=== PATIENT | male | born 1965 | race Caucasian/White ===

== ENCOUNTER 2019-09-15 05:03 | Day surgery (SDC) | payer OTHER, BC, SELFPAY ==
[2019-09-14 10:35] VITALS: BMI 43.3
[2019-09-15] VITALS (8 sets, daily range): BP systolic 126–141; BP diastolic 72–86; PULSE 71–84; RESP 12–20; TEMP 36.7–37.2; O2SAT 94–99
[2019-09-15 09:45] LABS: Basophils Percent Auto 0.4 % (0.2-1.2); Eosinophils Absolute Auto 0.1 K/mm3 (0-0.3); Eosinophils Percent Auto 1.2 % (0-4.4); Hematocrit 44.9 % (42.0-52.0); Hemoglobin 15.1 g/dL (14.0-18.0); Immature Granulocyte Absolute 0.07 K/mm3 (0.00-0.031); Lymphocytes Absolute Auto 1.57 K/mm3 (0.9-3.2); Mean Corpuscular HGB Conc 33.6 g/dl (32-36); Mean Corpuscular Volume 86.2 fl (80-100); Mean Platelet Volume 9.1 fl (7.4-10.4); Monocytes Absolute Auto 0.5 K/mm3 (0.1-0.6); Monocytes Percent Auto 7.7 % (2.6-8.5); Neutrophils Absolute Auto 4.6 K/mm3 (1.3-6.7); Neutrophils Percent Auto 66.7 % (45.5-73.1); Platelet Count Result 238 k/mm3 (150-375); Red Blood Count 5.21 M/mm3 (4.6-6.20); Red Cell Distribution Width 13.2 % (11.5-14.5); White Blood Count 6.8 K/mm3 (4.5-10.0)
[2019-09-15 09:56] LABS: Blood Urea Nitrogen 15 mg/dL (9-20); Calcium 9.5 mg/dL (8.4-10.2); Carbon Dioxide 28 mmol/L (22-30); Chloride 100 mmol/L (98-107); Estimated CRCL calculation 168 ml/min; Estimated Glomerular Filt Rate > 60; Glucose 268 mg/dL (75-110); Potassium 4.2 mmol/L (3.4-5.0); Sodium 136 mmol/L (137-145)
--- NOTE | 2019-09-15 10:37 | WPDMODSED ---
Moderate Sedation Note-Pt Data Patient Data Allergies Allergy/AdvReac Type Severity Reaction Status Date / Time clavulanic acid Allergy Unknown RASH Unverified 05/30/19 10:22 exenatide [Byetta] Allergy Unknown abd pain Verified 05/30/19 10:22 liraglutide [Victoza] Allergy Unknown Nausea Verified 05/30/19 10:22 meperidine Allergy Unknown Skin Verified 05/30/19 10:22 Reaction metformin Allergy Unknown Nausea Verified 05/30/19 10:22 Penicillins Allergy Unknown Skin Verified 05/30/19 10:22 Reaction pollen extracts Allergy Unknown Cough Verified 05/30/19 10:22 potassium iodide Allergy Unknown Unknown Verified 05/30/19 10:22 BETALACTAMASEIN Allergy Unknown RASH Uncoded 05/30/19 10:22 Home Medications Medication Instructions Recorded Confirmed Type albuterol sulfate 90 mcg/actuation 1 inhalation INHALATION Q4H 05/27/19 09/14/19 History aerosol inhaler aspirin 81 mg tablet,delayed 81 mg PO DAILY 05/27/19 09/14/19 History release fluticasone 500 mcg-salmeterol 50 1 inhalation INHALATION Q12H 05/27/19 09/14/19 History mcg/dose blistr powdr for inhalation gabapentin 300 mg capsule 300 mg PO BID 05/27/19 09/14/19 History insulin aspart U-100 100 unit/mL 20 unit SUB-Q TID 05/27/19 09/14/19 History (3 mL) subcutaneous pen insulin glargine U-300 conc 300 80 unit SUB-Q BID ml 05/27/19 09/14/19 History unit/mL (3 mL) subcutaneous pen montelukast 10 mg tablet 10 mg PO DAILY 05/27/19 09/14/19 History testosterone cypionate 200 mg/mL 200 mg IM .COMPLEX 05/27/19 09/14/19 History intramuscular kit irbesartan 150 mg tablet 150 mg PO DAILY #90 tablet 06/10/19 09/14/19 Rx fluticasone propionate 250 1 inhalation INHALATION Q12H #1 09/08/19 09/14/19 Rx mcg/actuation blister powder for device inhalation fluticasone propion-salmeterol 1 inh INHALATION Q12H 09/14/19 09/14/19 History [Advair Diskus] Current Medications: Active Medications Sodium Chloride (Normal Saline Iv) 500 mls @ 100 mls/hr IV CONT .Q5H [facility] Sedation/Anesthesia: No previous sedation/anesthesia problems (including family history). FOR[facility] Past Medical History Medical History (Updated 09/15/19 @ 10:39 by Yahaira Olvera MD) Esophageal reflux Essential (primary) hypertension H/O pneumothorax Mixed hyperlipidemia RAMÍREZ (obstructive sleep apnea) Periorbital cellulitis Type 2 diabetes mellitus with diabetic neuropathy, unspecified Type 2 diabetes mellitus with hyperglycemia Surgical History Surgical History H/O hernia repair Family History Family History Father Diabetes mellitus Hypertension Family history of cardiovascular disease Other Acute myocardial infarction Family history of arthritis Family history of lung cancer Family history of malignant neoplasm Social History Social History Smoking status: Never smoker Alcohol intake: current Gender identity (if verbalized by the patient): Male Mod Sed Physical Exam Physical Exam Pre Procedural Exam: Normal: Appearance, Eyes, Ears, Nose, Neck, Throat, Airway, Lungs, Heart Size, Heart Rate, Heart Rhythm, Neuro Exam, Abdomen, Liver, Kidneys, Spleen, Breasts, Genitalia, Extremities and Skin Hours since solid foods: 8 Hours since liquid intake: 8 Internal Medicine - PN: Obj Da Vital Signs Vital Signs: Vital Signs - 24 hr 09/15/19 10:06 Temperature 37.2 C Pulse Rate 80 Respiratory Rate 19 Blood Pressure 138/83 Pulse Oximetry 95 Meds/Results Medications: Active Medications Generic Name Dose Route Start Last Admin Trade Name Freq PRN Reason Stop Dose Admin Sodium Chloride 500 mls @ 100 mls/hr 09/15/19 06:00 Normal Saline Iv IV CONT .Q5H JENNIFER Labs CBC & Chem 7: 09/15/19 09:41 09/15/19 09:41 Labs: Laboratory Results - last 24 hr 09/15/19
--- NOTE | 2019-09-15 10:39 | WPDHPUPDATE1 ---
History and Physical Update Update Date/Time: 09/15/19 10:39 History and Physical has been reviewed, including an updated exam of the patient. There are NO changes in the patient's condition. Risks, benefits, and alternatives have been discussed and questions answered. Patient agrees to proceed with procedure.
--- NOTE | 2019-09-15 10:39 | WPDCARDPROC ---
Cardiac Cath Procedure Note Date of procedure:: 09/15/19 Performing physician:: Yahaira Olvera MD Date of service : 09/15/2019 Indication:: exertional chest pain Brief clinical history:: this is 54-year-old patient with past history of morbid obesity, sleep apnea, diabetes hypertension who was evaluated for exertional chest pain. Given the typical history he was brought into the mobile lab technician to define coronary anatomy. Procedure Procedure performed:: 1-Moderate sedation that started at 1048 am and ended at 1104 am With total duration 60 minutes using mg of Versed and mg fentanyl. The registered nurse was Fide Ellsworth. 2-Selective left and right coronary angiogram. 3-Left heart catheterization with measurement of LVEDP and measurement of gradient across aortic valve. 3- LV angiogram. 4-Right common femoral arterial angiogram. 5-Deployment of 6 Sudanese Angio-Seal. Sedation/Medication given:: Moderate sedation. Access site:: Right common femoral artery. Estimated blood loss:: 10cc Procedure note:: After informed consent patient was brought in to mobile lab technician with the was draped and prepped in usual manner. Moderate sedation was given and the right groin was infiltrated using 1% lidocaine. Five Sudanese sheath was obtained using micropuncture needle and the modified Seldinger technique. Selective left coronary angiogram was done using JL4 catheter with the tip of the catheter placed in the left main coronary artery. Selective right coronary angiogram was done using JR4 catheter with the tip of the catheter placed to the right coronary artery. After that 5 Sudanese pigtail catheter was advanced across the aortic valve into the left ventricle with measurement of LVEDP and measurement of gradient across aortic valve. LV angiogram was done as well. Right common femoral arterial angiogram was done. Findings:: 1- left coronary artery is a large artery that divides into large LAD, large circumflex artery. Left main is Free of disease. 2- left anterior descending artery is a large artery that runs and wraps around the apex. It has minimal irregularities. Gives rise to a medium size diagonal branch proximally that looks unremarkable small diagonal 2 branch that seems to be unremarkable. 3- left circumflex artery is a large artery And codominant with minimal irregularities. In the midsegment gives us a large OM1 branch it looks unremarkable. Left PDA looks unremarkable. 4- right coronary artery is Large artery and codominant and free of disease. 5- LVEDP was 5 mm Hg and no gradient across aortic valve. 5- LV angiogram shows normal LV systolic function with estimated ejection fraction 65%. Normal ascending aorta diameter. 6- opening arterial pressure was 159/78 and closing pressure was 145/82 7- right femoral artery angiogram shows no significant disease in the right common femoral artery. Conclusion:: Minimal coronary irregularities. Assessment and Plan Additional Plan continue aggressive risk factor modification for CAD.
--- NOTE | 2019-09-15 11:40 | SUR.PHASEII ---
1113-pt has returned from the CCL after an LHC. Groin soft and non-tender, no evidence of bleeding or hematoma noted. Strong right pedal pulse noted. Will continue to monitor.
--- NOTE | 2019-09-15 13:27 | SUR.PHASEII ---
1330 pt up to chair with minimal assistance, tolerated well, r groin soft, nontender, no hematoma or bleeding noted, pedal pulse strong, at bedside. Will continue to monitor closely.
--- NOTE | 2019-09-15 15:00 | SUR.PHASEII ---
1420-pt given D/C orders and instructions. Questions answered and verbalized understanding. Groin soft and non-tender, no evidence of bleeding or hematoma noted. Strong right pedal pulse noted. PIV removed. Taken via wheelchair to waiting vehicle. No distress noted or verbalized at time of departure.
== END 2019-09-15 14:20 | disposition home or self-care (01) ==
PROVIDERS: PCP Family Medicine; Visit Provider Internal Medicine Cardiovascular Disease
PROC: 4A023N7 Measurement of Cardiac Sampling and Pressure, Left Heart, Percutaneous Approach (ICD-10-PCS; CPT 93452; principal; 2019-09-15 10:00)
DX: R07.89 Other chest pain (principal); I10 Essential (primary) hypertension; E78.2 Mixed hyperlipidemia; E11.40 Type 2 diabetes mellitus with diabetic neuropathy, unspecified; E11.65 Type 2 diabetes mellitus with hyperglycemia; G47.33 Obstructive sleep apnea (adult) (pediatric); J45.909 Unspecified asthma, uncomplicated; K21.9 Gastro-esophageal reflux disease without esophagitis; Z79.84 Long term (current) use of oral hypoglycemic drugs; Z79.4 Long term (current) use of insulin; Z79.82 Long term (current) use of aspirin; Z82.49 Family history of ischemic heart disease and other diseases of the circulatory system
CPT/HCPCS: 36415; 80048; 85025; 93458; C1760; C1887; C1894; G0269; J1644; J2250; J3010

== ENCOUNTER 2021-01-09 07:33 | Outpatient (CLI) | payer OTHER, SELFPAY ==
[2021-01-09 08:09] LABS: Hematocrit 47.7 % (42.0-52.0); Hemoglobin 15.7 g/dL (14.0-18.0)
[2021-01-09 08:30] LABS: Alanine Aminotransferase 30 U/L (4-50); Albumin Level 4.5 g/dL (3.5-5.1); Alkaline Phosphatase 86 U/L (38-126); Anion Gap 9 mmol/L (8-16); Aspartate Amino Transferase 29 U/L (17-59); Bilirubin,Total 0.6 mg/dL (0.2-1.3); Blood Urea Nitrogen 17 mg/dL (9-20); Calcium 9.4 mg/dL (8.4-10.2); Carbon Dioxide 26 mmol/L (22-30); Chloride 100 mmol/L (98-107); Cholesterol 174 mg/dL (0-200); Estimated Glomerular Filt Rate > 60; Glucose 288 mg/dL (75-110); HDL Direct 33 mg/dL; Potassium 4.4 mmol/L (3.4-5.0); Sodium 135 mmol/L (137-145)
[2021-01-09 08:31] LABS: LDL Cholesterol Direct 63 mg/dL
[2021-01-09 10:46] LABS: Hemoglobin A1C 8.7 % (<5.7)
[2021-01-09 12:44] LABS: Triglycerides 564 mg/dL (<150)
[2021-01-13 09:11] LABS: Testosterone Total 107 ng/dL (250-1100)
[2021-01-16 19:57] LABS: Estradiol, Ultrasensitive 14 pg/mL (< OR = 29)
== END 2021-01-09 07:34 | disposition home or self-care (01) ==
PROVIDERS: PCP Family Medicine; Referring Provider Urology; Visit Provider Physician Assistant
DX: E11.40 Type 2 diabetes mellitus with diabetic neuropathy, unspecified (principal); E29.1 Testicular hypofunction; Z79.4 Long term (current) use of insulin; E78.2 Mixed hyperlipidemia
CPT/HCPCS: 36415; 80053; 80061; 82670; 83036; 84403; 85014; 85018

== ENCOUNTER → 2021-04-09 14:15 | Outpatient (CLI) | payer OTHER, SELFPAY ==
--- NOTE | ~2021-04-09 | XR_ITS ---
EXAMINATION: XR chest 2V DATE: 04/09/2021 15:09 INDICATION: Shortness of breath, unspecified TECHNIQUE: PA and lateral views of the chest are obtained. COMPARISON: 10/24/2020, 10/12/2018 FINDINGS: A suture anchor is noted in the left lung apex. There is chronic blunting of the left costo phrenic angle. There is no pleural effusion or pneumothorax. The cardiomediastinal silhouette is norm al. There is mild thoracic spondylosis. IMPRESSION: 1. No acute cardiopulmonary abnormality. Reviewed, dictated and finalized at location A.
== END ==
PROVIDERS: PCP Family Medicine; Visit Provider Family Medicine
DX: R06.00 Dyspnea, unspecified (principal)
CPT/HCPCS: 71046

== ENCOUNTER 2021-05-10 07:34 | Outpatient (CLI) | payer OTHER, SELFPAY ==
--- NOTE | 2021-05-10 07:58 | ECHO_ITS ---
Patient Info Name: Marcos Hunter Age: 55 years : 1965 Gender: Male Ht: 71 in Wt: 310 lbs BSA: 2.72 m2 HR: 74 bpm BP: 162 / 86 mmHg Technical Quality: Fair Exam Date: 05/10/2021 8:11 AM Exam Location: [facility] Patient Status: Outpatient Admit Date: 05/10/2021 Staff Ordering Physician: Misty Ralph MD Monogram Machine Operator: Laine Watson RDCS Attending Provider: Misty Ralph MD Referring Physician: Ramo RANDALL; Exam Type: CA echo doppler color flow Study Info Indications R06.02 - Shortness of breath Complete two-dimensional, color flow and Doppler transthoracic echocardiogram is performed. Summary 1. Complete two-dimensional, color flow and Doppler transthoracic echocardiogram is performed. 2. Left ventricular chamber dimension is normal. 3. Left ventricular systolic function is normal, estimated at 65-70%. 4. The left ventricular diastolic function is grade II diastolic dysfunction. 5. E/e' 11 is mildly elevated. 6. Global longitudinal strain is abnormal at -14.5%. 7. No pulmonary hypertension, estimated pulmonary arterial systolic pressure is 28 mmHg. Left Ventricle E/e' 11 is mildly elevated. Global longitudinal strain is abnormal at -14.5%. Left ventricular chamber dimension is normal. Left ventricular systolic function is normal, estimated at 65-70%. The left ventricular diastolic function is grade II diastolic dysfunction. Right Ventricle Right ventricular systolic function is normal and with normal TAPSE 2.2 cm.. Right ventricular chamber dimension is normal. Left Atria Left atrial chamber dimension is normal. Right Atria Right atrial chamber dimension is normal. Aortic Valve The aortic valve is probable trileaflet. There is no aortic valve stenosis. There is no aortic valve regurgitation. Pulmonic Valve There is no pulmonic regurgitation. Mitral Valve There is no mitral valve stenosis. There is no mitral valve regurgitation. Tricuspid Valve There is no tricuspid valve regurgitation. No pulmonary hypertension, estimated pulmonary arterial systolic pressure is 28 mmHg. Pericardium/Pleural There is no pericardial effusion. Inferior Vena Cava Normal inferior vena cava with >50% collapse upon inspiration consistent with normal right atrial pressure, 5 mmHg. Aorta The aortic root size at the sinus of Valsalva is normal. Left Ventricular Outflow Tract Name Value Normal LVOT 2D LVOT Diameter 2.0 cm LVOT Doppler LVOT Peak Gradient 7 mmHg LVOT Mean Gradient 4 mmHg LVOT VTI 27 cm LVOT VTI/AV VTI Ratio 1.0 LVOT Stroke Volume 84 ml LVOT CO 6.5 l/min LVOT CI 2.4 l/min/m2 Pulmonic Valve Name Value Normal RVOT Doppler
--- NOTE | 2021-05-10 13:16 | WPDPFTINT ---
PFT Procedure Performed PFT Procedure Performed Spirometry with Pre/Post Bronchodilator Plethysmography (Lung Vol) Diffusing Cap (DLCO) Flow Vol Loop PFT Interpretation This is a pulmonary function test with pre and post-bronchodilator spirometry, plethysmography and diffusing capacity. The test was performed and results interpreted in accordance with the 2019 and 2005 ATS/ERS Task Force guidelines respectively using the Global Lung Function Initiative-2012 reference equations. Patient demonstrated good effort and cooperation. Reproducibility criteria were met. The quality of the pre bronchodilator spirometry maneuver was Grade A and post bronchodilator spirometry maneuver was Grade A. Findings: Spirometry: There is decreased maximal expiratory airflow at all lung volumes with concave expiratory flow tracing. The contour of the inspiratory flow tracing is normal. The pre bronchodilator FVC is 4.04 L, 82% predicted. The pre bronchodilator FEV1 is 2.55 L, 67% predicted. The FEV1: FVC ratio 63%. The post bronchodilator FVC is 3.85 L, representing a 5% decrease. The post bronchodilator FEV1 is 2.53 L, representing 1% decrease. Plethysmography: The total lung capacity is 5.75 L, 80% predicted. The functional residual capacity is 3.24 L, 87% predicted. The residual volume is 1.71 L, 77% predicted. Diffusion capacity: The absolute diffusion capacity is 27.3, 93% predicted. The diffusing capacity corrected for alveolar volume is 5.51, 129% predicted. Impression: There is a moderate obstructive abnormality without significant improvement after inhaling a single dose of albuterol. The lung volumes are normal. the absolute diffusing capacity is normal and the diffusing capacity corrected for alveolar volume is increased. There are no prior studies for comparison
== END 2021-05-10 07:35 | disposition home or self-care (01) ==
PROVIDERS: PCP Family Medicine; Visit Provider Internal Medicine Critical Care Medicine
DX: J45.50 Severe persistent asthma, uncomplicated (principal); R06.02 Shortness of breath; R94.2 Abnormal results of pulmonary function studies
CPT/HCPCS: 93306; 94060; 94726; 94729

== ENCOUNTER 2021-05-21 07:34 | Outpatient (CLI) | payer OTHER, SELFPAY ==
[2021-05-21 08:05] LABS: Basophils Absolute Auto 0.1 K/mm3 (0.0-0.1); Basophils Percent Auto 0.7 % (0.2-1.2); Eosinophils Absolute Auto 0.1 K/mm3 (0-0.3); Eosinophils Percent Auto 1.2 % (0-4.4); Hematocrit 42.5 % (42.0-52.0); Hemoglobin 14.2 g/dL (14.0-18.0); Immature Granulocyte Absolute 0.07 K/mm3 (0.00-0.031); Lymphocytes Absolute Auto 1.18 K/mm3 (0.9-3.2); Lymphocytes Percent Auto 16.3 % (18.3-44.2); Mean Corpuscular HGB Conc 33.4 g/dl (32-36); Mean Corpuscular Hemoglobin 30.3 pg (26-34); Mean Corpuscular Volume 90.6 fl (80-100); Mean Platelet Volume 9.5 fl (7.4-10.4); Monocytes Absolute Auto 0.5 K/mm3 (0.1-0.6); Neutrophils Absolute Auto 5.3 K/mm3 (1.3-6.7); Neutrophils Percent Auto 73.8 % (45.5-73.1); Platelet Count Result 201 k/mm3 (150-375); Red Blood Count 4.69 M/mm3 (4.6-6.20); Red Cell Distribution Width 13.2 % (11.5-14.5); White Blood Count 7.2 K/mm3 (4.5-10.0)
[2021-05-24 11:06] LABS: Alpha-1-Antitrypsin, QN 127 mg/dL (83-199)
[2021-05-26 02:24] LABS: Immunoglobulin E 168 kU/L (<=114)
== END 2021-05-21 07:35 | disposition home or self-care (01) ==
LOC: ANHLAB 07:37
PROVIDERS: PCP Family Medicine; Visit Provider Internal Medicine Critical Care Medicine
DX: J45.50 Severe persistent asthma, uncomplicated (principal); R06.02 Shortness of breath
CPT/HCPCS: 36415; 82103; 82104; 82785; 85025; 86606

== ENCOUNTER → 2021-06-11 12:32 | Outpatient (CLI) | payer OTHER, SELFPAY ==
--- NOTE | ~2021-06-11 | XR_ITS ---
EXAMINATION: XR lumbar spine 2-3V DATE: 06/11/2021 13:02 INDICATION: Low back pain. TECHNIQUE: 3 views of lumbar spine were obtained. COMPARISON: None. FINDINGS: There is 5 degrees dextrocurvature of thoracolumbar spine. Vertebral body heights and inter vertebral disc heights are normal. There are endplate osteophytes at multiple levels. There is severe facet joint osteoarthritis in lower lumbar spine. There are surgical clips from ventral hernia repmaria guadalupe rStephan IMPRESSION: 1. Mild lumbar spondylosis. Reviewed, dictated and finalized at location A. MING PRESS OPERATOR IMPRESSION: 1. Mild lumbar spondylosis.
--- NOTE | ~2021-06-11 | XR_ITS ---
EXAMINATION: XR hip BI 2V w AP pelvis DATE: 06/11/2021 13:02 INDICATION: Hip pain. Low back pain. TECHNIQUE: An anteroposterior view of the pelvis and 2 views of each hip were obtained. COMPARISON: Left hip radiographs 05/25/2017 FINDINGS: Bone alignment is normal. No fracture. There is mild osteoarthritis of the hips characteriz ed by tiny osteophytes. There are surgical clips from ventral hernia repair. IMPRESSION: 1. Mild osteoarthritis of the hips. Reviewed, dictated and finalized at location A. BRATION SPECIALIST
== END ==
PROVIDERS: PCP Family Medicine; Visit Provider Physician Assistant
DX: M54.50 Low back pain, unspecified (principal); M25.559 Pain in unspecified hip; M47.816 Spondylosis without myelopathy or radiculopathy, lumbar region; M16.0 Bilateral primary osteoarthritis of hip
CPT/HCPCS: 72100; 73521

== ENCOUNTER 2021-08-27 07:15 | Outpatient (CLI) | payer OTHER, SELFPAY ==
[2021-08-27 08:24] LABS: Alanine Aminotransferase 35 U/L (4-50); Albumin Level 4.3 g/dL (3.5-5.1); Alkaline Phosphatase 86 U/L (38-126); Anion Gap 10 mmol/L (8-16); Aspartate Amino Transferase 30 U/L (17-59); Bilirubin,Total 0.8 mg/dL (0.2-1.3); Blood Urea Nitrogen 14 mg/dL (9-20); Calcium 8.5 mg/dL (8.4-10.2); Carbon Dioxide 22 mmol/L (22-30); Chloride 103 mmol/L (98-107); Cholesterol 159 mg/dL (0-200); Estimated Glomerular Filt Rate > 60; Glucose 213 mg/dL (65-110); HDL Direct 31 mg/dL; Potassium 4.3 mmol/L (3.4-5.0); Sodium 135 mmol/L (137-145); Triglycerides 266 mg/dL (<150)
[2021-08-27 08:35] LABS: LDL Cholesterol Direct 87 mg/dL
[2021-08-27 09:23] LABS: Vitamin B12 > 1000.0 pg/mL (239-931)
[2021-08-27 11:13] LABS: Creatinine Urine 41.5 mg/dL
[2021-08-27 11:17] LABS: MALB Creatinine Ratio 130.8 mg/g (0-30); Microalbumin Urine Random 54.3 mg/L (0-16.7)
== END 2021-08-27 07:16 | disposition home or self-care (01) ==
PROVIDERS: PCP Family Medicine; Referring Provider Internal Medicine Endocrinology, Diabetes & Metabolism; Visit Provider Physician Assistant
DX: E11.65 Type 2 diabetes mellitus with hyperglycemia (principal); E78.2 Mixed hyperlipidemia; Z79.4 Long term (current) use of insulin; E11.40 Type 2 diabetes mellitus with diabetic neuropathy, unspecified
CPT/HCPCS: 36415; 80053; 80061; 82043; 82607; 84443

== ENCOUNTER → 2021-08-28 08:47 | Outpatient (CLI) | payer OTHER, SELFPAY ==
[2021-08-28 16:45] LABS: SARS-CoV-2 RNA PCR Negative
== END ==
PROVIDERS: PCP Family Medicine; Visit Provider Family Medicine
DX: Z20.822 Contact with and (suspected) exposure to COVID-19 (principal)
CPT/HCPCS: C9803; U0003; U0005

== ENCOUNTER 2021-08-29 10:26 | Outpatient (CLI) | payer OTHER, SELFPAY ==
--- NOTE | ~2021-08-29 | CT_ITS ---
EXAMINATION: CT abdomen pelvis w con INDICATION: Abdominal pain TECHNIQUE: Computed tomographic images of the abdomen and pelvis were obtained after the administrati on of 100 cc of Omnipaque 350 intravenous contrast. The dose-length product (DLP) was 1598.87 mGy-cm. Automated exposure control and iterative reconstruction technique were employed. COMPARISON: None available FINDINGS: Minimal dependent atelectasis is present in the lung bases. The heart size is normal. There is a 6 mm nodule of the left lower lobe. The liver, spleen, pancreas, gallbladder, and adrenal gland s are normal. Cysts of the kidneys measure up to 9 mm on the right. There are mildly dilated loops of small bowel. No discrete transition point is identified. There is no free intraperitoneal gas. Mccracken es of mesh ventral hernia repair are noted. There is mild lumbar spondylosis. IMPRESSION: 1. Mildly dilated small bowel without discrete transition point identified, likely ileus. 2. 6 mm nodule of the left lower lobe, likely old granulomatous disease. Follow-up CT in 6-12 months is recommended. Reviewed, dictated and finalized at location A. ONNEL ADMINISTRATOR IMPRESSION: 1. Mildly dilated small bowel without discrete transition point identified, lik mao ileus. 2. 6 mm nodule of the left lower lobe, likely old granulomatous disease. Follow -up CT in 6-12 months is recommended.
== END 2021-08-29 10:27 | disposition home or self-care (01) ==
LOC: ANHIMG 10:27
PROVIDERS: PCP Family Medicine; Visit Provider Physician Assistant
DX: R10.9 Unspecified abdominal pain (principal); R91.1 Solitary pulmonary nodule
CPT/HCPCS: 74177; Q9967

== ENCOUNTER → 2021-09-02 12:23 | Outpatient (CLI) | payer OTHER, SELFPAY ==
--- NOTE | ~2021-09-02 | XR_ITS ---
EXAMINATION: XR abdomen obstructive series DATE: 09/02/2021 12:58 INDICATION: Abdominal pain TECHNIQUE: Supine and upright views of the abdomen. FINDINGS: 07/31/2011 The visualized lung parenchyma is normal.. There is a nonobstructive bowel gas pattern. There is a la rge amount of retained fecal material throughout the colon. There are changes of ventral abdominal wa ll hernia repair. No acute osseous abnormality. Gas and stool are seen throughout the colon to the le sanju of the rectum. There is no free air. IMPRESSION: 1. Fecal impaction of the colon. Reviewed, dictated and finalized at location B. WICH WRAPPER
== END ==
PROVIDERS: PCP Family Medicine; Visit Provider Family Medicine
DX: R10.9 Unspecified abdominal pain (principal); K56.41 Fecal impaction
CPT/HCPCS: 74019

== ENCOUNTER → 2021-10-03 15:01 | Outpatient (CLI) | payer OTHER, SELFPAY ==
--- NOTE | ~2021-10-03 | XR_ITS ---
EXAMINATION: XR chest 2V DATE: 10/03/2021 15:44 INDICATION: Cough TECHNIQUE: AP and lateral views of the chest are obtained. COMPARISON: 04/09/2021 FINDINGS: A suture line is noted in the left lung apex. There is unchanged chronic blunting of the le ft costophrenic angle. The lungs are free of acute opacities. There is no pleural effusion or pneumot horax. The cardiomediastinal silhouette is normal. There is mild thoracic spondylosis. IMPRESSION: 1. No acute cardiopulmonary abnormality. Reviewed, dictated and finalized at location B.
== END ==
PROVIDERS: PCP Family Medicine; Visit Provider Internal Medicine Critical Care Medicine
DX: R68.89 Other general symptoms and signs (principal)
CPT/HCPCS: 71046

== ENCOUNTER → 2021-11-21 12:34 | Outpatient (CLI) | payer OTHER, SELFPAY ==
--- NOTE | ~2021-11-21 | XR_ITS ---
XR hip LT min 2V DATE: 11/21/2021 13:13 INDICATION: Left hip pain TECHNIQUE: AP and lateral views COMPARISON: 06/11/2021 pelvis and bilateral hips FINDINGS: No fracture or dislocation, avascular necrosis or bone destruction. Left hip joint space ap pears preserved. IMPRESSION: Negative Reviewed, dictated and finalized at location B. IMPRESSION: Negative
--- NOTE | ~2021-11-21 | XR_ITS ---
XR lumbar spine 2-3V DATE: 11/21/2021 13:13 INDICATION: Low back pain TECHNIQUE: AP, lateral, coned lateral lumbosacral views COMPARISON: 06/11/2021 lumbar spine FINDINGS: Mild dextroscoliosis of the thoracolumbar spine. Normal alignment lumbar spine. No fracture or bone destruction or spondylolisthesis. There is mild degenerative disease and spurring at L3-4. Remaining lumbar and lumbosacral interspaces are well preserved. The lumbar pedicles are intact. The sacroiliac joints are intact. Surgical clips from ventral lower abdominal wall hernia repair. IMPRESSION: No significant change since 06/11/2021 Reviewed, dictated and finalized at location B.
== END ==
PROVIDERS: PCP Family Medicine; Visit Provider Physician Assistant
DX: M47.816 Spondylosis without myelopathy or radiculopathy, lumbar region (principal); M41.9 Scoliosis, unspecified
CPT/HCPCS: 72100; 73502

== ENCOUNTER 2022-03-27 14:38 | Outpatient (CLI) | payer OTHER, SELFPAY ==
--- NOTE | ~2022-03-27 | CT_ITS ---
EXAMINATION:CT diagnostic chest wo con DATE: 03/27/2022 15:20 INDICATION: Solitary pulmonary nodule. TECHNIQUE: Computed tomography (CT) of the chest was performed without intravenous contrast. Automate d exposure control and iterative reconstruction technique were employed. The dose-length product (DLP ) was 447.99 mGy-cm. COMPARISON: CT abdomen and pelvis 08/29/2021 FINDINGS: There is mild scarring at the lung apices. There is a staple line in the left lung apex. Th ere is mild atelectasis in the inferior right lung and peripheral left lung. There is a 7 mm part radha id nodule in left upper lobe. There is a 4 mm nodule in left upper lobe. Foci of hyperdensity in the pleura on the left may be changes of pleurodesis. There is a 15 mm groundglass opacity in right lower lobe. No pleural effusion. The heart size is normal. There are coronary artery calcifications. No pe ricardial effusion. There is mild chronic anterior wedging of T6 vertebral body. There is mild thorac ic spondylosis. IMPRESSION: 1. Lung-RADS category 3: Probably benign. Further evaluation is recommended with noncontrast low-dose chest CT in 6 months. Reviewed, dictated and finalized at location A. IMPRESSION: 1. Lung-RADS category 3: Probably benign. Further evaluation is recommended wit h noncontrast low-dose chest CT in 6 months.
== END 2022-03-27 14:39 | disposition home or self-care (01) ==
PROVIDERS: PCP Internal Medicine Critical Care Medicine; Visit Provider Internal Medicine Critical Care Medicine
DX: R91.1 Solitary pulmonary nodule (principal); M47.814 Spondylosis without myelopathy or radiculopathy, thoracic region; M48.54XA Collapsed vertebra, not elsewhere classified, thoracic region, initial encounter for fracture
CPT/HCPCS: 71250

== ENCOUNTER 2022-07-10 07:46 | Outpatient (CLI) | payer OTHER, SELFPAY | END 2022-07-10 07:47 | disposition home or self-care (01) | LOC: ANHAUDASC 07:47 | PROVIDERS: PCP Family Medicine; Visit Provider Family Medicine | DX: R41.89 Other symptoms and signs involving cognitive functions and awareness (principal); H90.3 Sensorineural hearing loss, bilateral | CPT/HCPCS: 92557; 92567 ==

== ENCOUNTER 2022-07-23 08:14 | Outpatient (CLI) | payer OTHER, SELFPAY ==
--- NOTE | ~2022-07-23 | MR_ITS ---
EXAMINATION: MR brain/brain stem wo/w con DATE: 07/23/2022 09:09 INDICATION: Cognitive impairment. Memory loss. TECHNIQUE: Magnetic resonance imaging (MRI) of the brain and brainstem was performed without and with 20 mL MultiHance intravenous contrast. COMPARISON: None. FINDINGS: There is no intracranial hemorrhage, acute infarction, or abnormal intracranial mass lesion . The ventricles are normal in size. The mastoid air cells are normal. There is mild mucosal thickeni ng in the paranasal sinuses. The orbits are normal. IMPRESSION: 1. Normal brain. Reviewed, dictated and finalized at location A. ISTRY QUALITY CONTROL TECHNICIAN IMPRESSION: 1. Normal brain.
== END 2022-07-23 08:15 | disposition home or self-care (01) ==
LOC: ANHIMG 08:15
PROVIDERS: PCP Family Medicine; Visit Provider Family Medicine
DX: R41.89 Other symptoms and signs involving cognitive functions and awareness (principal); E11.40 Type 2 diabetes mellitus with diabetic neuropathy, unspecified; Z79.4 Long term (current) use of insulin
CPT/HCPCS: 70553; A9577

== ENCOUNTER 2022-09-18 15:00 | Outpatient (RCR) | payer OTHER, SELFPAY | END 2022-11-04 23:59 | disposition home or self-care (01) | LOC: ANHAUDASC 15:00 | PROVIDERS: PCP Family Medicine; Visit Provider Family Medicine | DX: Z46.1 Encounter for fitting and adjustment of hearing aid (principal) | CPT/HCPCS: 99199; V5261 ==

== ENCOUNTER 2022-09-20 07:48 | Outpatient (CLI) | payer OTHER, SELFPAY ==
[2022-09-20 08:27] LABS: Cholesterol 172 mg/dL (0-200); HDL Direct 33 mg/dL; Triglycerides 268 mg/dL (<150)
[2022-09-20 08:29] LABS: Alanine Aminotransferase 27 U/L (6-50); Albumin Level 4.2 g/dL (3.5-5.1); Alkaline Phosphatase 81 U/L (38-126); Anion Gap 4 mmol/L (8-16); Aspartate Amino Transferase 24 U/L (17-59); Bilirubin,Total 0.5 mg/dL (0.2-1.3); Blood Urea Nitrogen 18 mg/dL (9-20); Carbon Dioxide 31 mmol/L (22-30); Chloride 102 mmol/L (98-107); Estimated Glomerular Filt Rate > 60; Glucose 193 mg/dL (65-110); Sodium 137 mmol/L (137-145)
[2022-09-20 08:37] LABS: LDL Cholesterol Direct 99 mg/dL
[2022-09-20 12:42] LABS: Microalbumin Urine Random 21.1 mg/L (0-16.7)
[2022-09-20 13:40] LABS: Creatinine Urine 72.6 mg/dL; MALB Creatinine Ratio 29.1 mg/g (0-30)
== END 2022-09-20 07:49 | disposition home or self-care (01) ==
PROVIDERS: PCP Family Medicine; Visit Provider Internal Medicine Endocrinology, Diabetes & Metabolism
DX: R41.89 Other symptoms and signs involving cognitive functions and awareness (principal); E11.29 Type 2 diabetes mellitus with other diabetic kidney complication; E11.65 Type 2 diabetes mellitus with hyperglycemia; E78.5 Hyperlipidemia, unspecified; R80.9 Proteinuria, unspecified; Z71.3 Dietary counseling and surveillance; Z79.4 Long term (current) use of insulin
CPT/HCPCS: 36415; 80053; 80061; 82043; 82607; 84443

== ENCOUNTER 2022-09-24 13:37 | Outpatient (CLI) | payer OTHER, SELFPAY ==
--- NOTE | ~2022-09-24 | CT_ITS ---
CT Scan of the Chest without Contrast: Clinical Indication: Pulmonary nodules Technique: Contiguous sections were acquired throughout the chest without intravenous contrast. Dose reduction technique was used on this scan by utilizing automated exposure control and iterative recon struction technique. The dose-length product (DLP) was 434.34 mGy-cm. COMPARISON: 03/27/2022 Findings: There is no evidence of any significant mediastinal, hilar or axillary lymphadenopathy. Coronary piero ry calcifications are present. No aortic aneurysm. There is no evidence of pleural or pericardial effusion. 3 mm nodule in the right middle lobe (axial image 69). Stable scarring at the left lung apex and left lung base. Stable nodule at the left lung base (axial image 100. Stable nodularity along the left yu ng fissure. Stable suture line versus calcified plaque at the left lung apex. Previously noted right lower lobe groundglass opacity is resolved. Images through the upper abdomen reveal no abnormalities. Impression: Stable subcentimeter pulmonary nodules, as noted above. Consider continued follow-up to document two- year stability. Previously noted right lower lobe groundglass opacity is resolved. Stable staple line at the left lung apex. Reviewed, dictated and finalized at location . Impression: Stable subcentimeter pulmonary nodules, as noted above. Consider continued foll ow-up to document two-year stability. Previously noted right lower lobe groundglass opacity is resolved. Stable staple line at the left lung apex.
== END 2022-09-24 13:38 | disposition home or self-care (01) ==
PROVIDERS: PCP Family Medicine; Visit Provider Internal Medicine Critical Care Medicine
DX: R91.8 Other nonspecific abnormal finding of lung field (principal)
CPT/HCPCS: 71250

== ENCOUNTER 2023-02-10 14:25 | Outpatient (CLI) | payer OTHER, SELFPAY ==
[2023-02-10 14:50] LABS: Basophils Absolute Auto 0.1 K/mm3 (0.0-0.1); Basophils Percent Auto 0.6 % (0.2-1.2); Eosinophils Absolute Auto 0.1 K/mm3 (0-0.3); Eosinophils Percent Auto 1.2 % (0-4.4); Hematocrit 46.2 % (42.0-52.0); Hemoglobin 15.3 g/dL (14.0-18.0); Immature Granulocyte Absolute 0.05 K/mm3 (0.00-0.031); Immature Granulocyte Percent A 0.6 % (0-0.5); Lymphocytes Absolute Auto 1.73 K/mm3 (0.9-3.2); Lymphocytes Percent Auto 22.2 % (18.3-44.2); Mean Corpuscular HGB Conc 33.1 g/dl (32-36); Mean Corpuscular Hemoglobin 30.1 pg (26-34); Mean Corpuscular Volume 90.8 fl (80-100); Monocytes Absolute Auto 0.7 K/mm3 (0.1-0.6); Monocytes Percent Auto 9.1 % (2.6-8.5); Neutrophils Absolute Auto 5.2 K/mm3 (1.3-6.7); Neutrophils Percent Auto 66.3 % (45.5-73.1); Platelet Count Result 210 k/mm3 (150-375); Red Blood Count 5.09 M/mm3 (4.6-6.20); Red Cell Distribution Width 13.1 % (11.5-14.5); White Blood Count 7.8 K/mm3 (4.5-10.0)
[2023-02-10 15:22] LABS: Immunoglobulin G 1023 mg/dL (700-1600)
== END 2023-02-10 14:26 | disposition home or self-care (01) ==
PROVIDERS: PCP Family Medicine
DX: J34.3 Hypertrophy of nasal turbinates (principal)
CPT/HCPCS: 36415; 82784; 85025

== ENCOUNTER 2023-03-19 12:09 | Outpatient (CLI) | payer OTHER, SELFPAY ==
--- NOTE | ~2023-03-19 | CT_ITS ---
EXAMINATION: CT diagnostic chest wo con DATE: 03/19/2023 12:27 INDICATION: Pulmonary nodules TECHNIQUE: Computed tomography (CT) of the chest was performed without intravenous contrast. The dose -length product (DLP) was 323.29 mGy-cm. Automated exposure control and iterative reconstruction tech nique were employed. COMPARISON: 09/24/2022 FINDINGS: There is a staple line in the left lung apex. There is a stable 7 mm part solid nodule of t he left upper lobe. The lungs are free of acute opacities. No pleural effusion or pneumothorax. The h eart size is normal. There is mild right axillary lymphadenopathy. There is mild thoracic spondylosis . IMPRESSION: 1. Stable left upper lobe nodule, probably benign. Annual lung cancer screening is recommended. 2. Right axillary lymphadenopathy of unclear significance or etiology. Clinical follow-up is recommen ded. Reviewed, dictated and finalized at location L. IMPRESSION: 1. Stable left upper lobe nodule, probably benign. Annual lung cancer screening is recommended. 2. Right axillary lymphadenopathy of unclear significance or etiology. Clinical follow-up is recommended.
== END 2023-03-19 12:10 | disposition home or self-care (01) ==
LOC: ANHIMG 12:11
PROVIDERS: PCP Family Medicine; Visit Provider Internal Medicine Critical Care Medicine
DX: R91.1 Solitary pulmonary nodule (principal)
CPT/HCPCS: 71250

== ENCOUNTER 2023-05-27 16:08 | Outpatient (CLI) | payer OTHER, SELFPAY ==
[2023-05-27 17:52] LABS: Hemoglobin 15.2 g/dL (14.0-18.0)
[2023-05-27 18:42] LABS: Prostate Specific Antigen 0.6 ng/mL (< OR = 4.0)
[2023-06-01 12:15] LABS: Testosterone Total 727 ng/dL (250-1100)
[2023-06-03 23:12] LABS: Estradiol, Ultrasensitive 40 pg/mL (< OR = 29)
== END 2023-05-27 16:09 | disposition home or self-care (01) ==
LOC: ANHLAB 16:09
PROVIDERS: PCP Family Medicine; Visit Provider Urology
DX: Z12.5 Encounter for screening for malignant neoplasm of prostate (principal); E29.1 Testicular hypofunction
CPT/HCPCS: 36415; 82670; 84153; 84403; 85014; 85018; G0103

== ENCOUNTER 2023-09-01 07:33 | Outpatient (CLI) | payer OTHER, SELFPAY ==
--- NOTE | ~2023-09-01 | XR_ITS ---
EXAMINATION: XR chest 2V DATE: 09/01/2023 07:48 INDICATION: Cough TECHNIQUE: PA and lateral views of the chest are obtained. COMPARISON: 10/03/2021 FINDINGS: The lungs are free of acute opacities. Surgical ash are noted at the left lung apex. Th ere is volume loss in the left hemithorax with peripheral scarring at the left costophrenic angle. No pleural effusion or pneumothorax. The cardiomediastinal silhouette is normal. There is mild thoracic spondylosis. IMPRESSION: 1. No acute cardiopulmonary abnormality. Reviewed, dictated and finalized at location L. STACKER
== END 2023-09-01 07:34 | disposition home or self-care (01) ==
LOC: ANHIMG 07:35
PROVIDERS: PCP Family Medicine; Visit Provider Internal Medicine Critical Care Medicine
DX: U07.1 COVID-19 (principal); R06.02 Shortness of breath; R05.9 Cough, unspecified
CPT/HCPCS: 71046

== ENCOUNTER 2023-09-02 12:01 | Outpatient (CLI) | payer OTHER, SELFPAY ==
--- NOTE | 2023-09-02 07:56 | ECG_ITS ---
Measurements Intervals [place]son Rate: 81 P: 60 CO: 140 QRS: 46 QRSD: 100 T: 52 QT: 349 QTc: 405 Interpretive Statements SINUS RHYTHM WITH SINUS ARRHYTHMIA BORDERLINE ECG NO PREVIOUS ECG AVAILABLE FOR COMPARISON Electronically Signed On 09-02-2023 16:24:26 ADVERTISING SOLICITOR by Judah Chavis M.D.
[2023-09-02 12:39] LABS: Basophils Absolute Auto 0.1 K/mm3 (0.0-0.1); Basophils Percent Auto 0.7 % (0.2-1.2); Eosinophils Percent Auto 0.1 % (0-4.4); Hematocrit 46.2 % (42.0-52.0); Hemoglobin 14.8 g/dL (14.0-18.0); Immature Granulocyte Absolute 0.31 K/mm3 (0.00-0.031); Immature Granulocyte Percent A 3.6 % (0-0.5); Lymphocytes Absolute Auto 0.88 K/mm3 (0.9-3.2); Lymphocytes Percent Auto 10.2 % (18.3-44.2); Mean Corpuscular Hemoglobin 29.3 pg (26-34); Mean Corpuscular Volume 91.5 fl (80-100); Mean Platelet Volume 9.5 fl (7.4-10.4); Monocytes Absolute Auto 0.5 K/mm3 (0.1-0.6); Monocytes Percent Auto 5.8 % (2.6-8.5); Neutrophils Absolute Auto 6.8 K/mm3 (1.3-6.7); Neutrophils Percent Auto 79.6 % (45.5-73.1); Platelet Count Result 202 k/mm3 (150-375); Red Blood Count 5.05 M/mm3 (4.6-6.20); Red Cell Distribution Width 13.3 % (11.5-14.5); White Blood Count 8.6 K/mm3 (4.5-10.0)
[2023-09-02 12:51] LABS: Alanine Aminotransferase 31 U/L (6-50); Albumin Level 4.3 g/dL (3.5-5.1); Alkaline Phosphatase 66 U/L (38-126); Anion Gap 7 mmol/L (8-16); Aspartate Amino Transferase 27 U/L (17-59); Bilirubin,Total 0.8 mg/dL (0.2-1.3); Blood Urea Nitrogen 25 mg/dL (9-20); Calcium 9.5 mg/dL (8.4-10.2); Carbon Dioxide 27 mmol/L (22-30); Chloride 100 mmol/L (98-107); Estimated Glomerular Filt Rate > 60; Glucose 204 mg/dL (65-110); Lactate Dehydrogenase 147 U/L (120-246); Potassium 4.5 mmol/L (3.4-5.0); Sodium 134 mmol/L (137-145)
[2023-09-02 12:56] LABS: D Dimer < 0.27 ug/mL (<0.48)
[2023-09-02 13:03] LABS: NT Pro B Type Natriuretic Pept < 20 pg/mL (19.9-100); Troponin I < 0.012 ng/mL (0.000-0.034)
== END 2023-09-02 12:02 | disposition home or self-care (01) ==
PROVIDERS: PCP Family Medicine; Visit Provider Internal Medicine Critical Care Medicine
DX: R07.9 Chest pain, unspecified (principal); U07.1 COVID-19; I49.8 Other specified cardiac arrhythmias
CPT/HCPCS: 36415; 80053; 83615; 83880; 84484; 85025; 85380; 93005

== ENCOUNTER 2023-09-03 07:34 | Outpatient (CLI) | payer OTHER, SELFPAY ==
--- NOTE | ~2023-09-03 | CT_ITS ---
Clinical Indication: Chest pain CT Scan of the Chest with Contrast: Technique: Contiguous sections were acquired throughout the chest after intravenous administration of 100 cc of Omnipaque 350. Dose reduction technique was used on this scan by utilizing automated expos ure control and iterative reconstruction technique. The dose-length product (DLP) was 1907.72 mGy-cm. COMPARISON: 03/19/2023 Findings: There is no evidence of any significant mediastinal, hilar or axillary lymphadenopathy. There is no f illing defect in the pulmonary arterial tree to suggest pulmonary embolus. There is no evidence of ao rtic dissection or aneurysm. There is no evidence of pleural or pericardial effusion. There is probable focal postoperative changes of the lung apex. No other significant pulmonary abnorm ality identified. Images through the upper abdomen reveal no abnormalities. Impression: No evidence of pulmonary embolus, aortic dissection, or aortic aneurysm. No significant pulmonary abnormality. Reviewed, dictated and finalized at [facility]. OLE B[employer]ER HAND Impression: No evidence of pulmonary embolus, aortic dissection, or aortic aneurysm. No significant pulmonary abnormality.
== END 2023-09-03 07:35 | disposition home or self-care (01) ==
LOC: ANHIMG 07:37
PROVIDERS: PCP Family Medicine; Visit Provider Internal Medicine Critical Care Medicine
DX: R06.00 Dyspnea, unspecified (principal); R07.9 Chest pain, unspecified
CPT/HCPCS: 71275; Q9967

== ENCOUNTER 2023-09-24 14:17 | Outpatient (CLI) | payer OTHER, SELFPAY | END 2023-09-24 14:18 | disposition home or self-care (01) | LOC: ANHAUDASC 14:18 | PROVIDERS: PCP Family Medicine; Visit Provider Family Medicine | DX: H90.3 Sensorineural hearing loss, bilateral (principal) | CPT/HCPCS: 92557; 92567 ==

== ENCOUNTER 2024-01-11 16:57 | Outpatient (CLI) | payer OTHER, SELFPAY ==
--- NOTE | ~2024-01-11 | XR_ITS ---
EXAM: XR shoulder LT min 2V DATE: 01/11/2024 17:16 HISTORY: M25.512 - Pain in left shoulder . COMPARISON: None available. FINDINGS: Normal mineralization. No fracture or dislocation. No lytic or blastic lesion. Moderate de generative change at the AC joint and glenohumeral joint. Calcification in the distal rotator cuff. N o erosion or periosteal change. Suture line in the left lung apex. IMPRESSION: Moderate polyarticular left shoulder osteoarthritis. Rotator cuff calcific tendinitis. Reviewed, dictated and finalized at location [facility]. IMPRESSION: Moderate polyarticular left shoulder osteoarthritis. Rotator cuff c alcific tendinitis.
== END 2024-01-11 16:58 | disposition home or self-care (01) ==
PROVIDERS: PCP Family Medicine; Visit Provider Family Medicine
DX: M19.012 Primary osteoarthritis, left shoulder (principal); M75.32 Calcific tendinitis of left shoulder
CPT/HCPCS: 73030

== ENCOUNTER 2024-02-19 14:30 | Outpatient (RCR) | payer OTHER, SELFPAY ==
--- NOTE | 2023-12-04 16:22 | OPREHPOC ---
Outpatient Therapy Plan of Care This is a Multidisciplinary Plan of Care that may contain components documented by all disciplines (PT, OT, and ST.) PT Problem 1 PT Problem #1 Knowledge Deficit PT Goal 1 Goal *indep with HEP Target Visit 8 PT Problem 2 PT Problem #2 Pain PT Goal 1 Goal 1* pain rating at worst for low back and R hip 2* self assessment Oswestry rating of 10% limitation Target Visit 8 PT Problem 3 PT Problem #3 Impaired Range of Motion PT Goal 1 Goal increase ROM of trunk and hips, to improve position of spine hamstring length with supine SLR 1* R 65' 2* L 70' piriformis stretch in supine, knee cross midline of body 3* R 4* L Target Visit 8 PT Problem 4 PT Problem #4 Impaired Strength PT Goal 1 Goal increase strength of trunk and hips, to improve posture and stability to spine 1* pt perform trunk and hip strengthening exercises x 20 reps 2* single leg standing R x 10 seconds with good stability 3* single leg standing L x 10 reps with good stability Target Visit 8
--- NOTE | 2023-12-04 16:22 | PTOPEVAL1 ---
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 He stated the R hip is most bothersome at this time. Medical history includes neck pain, back pain. Self assessment with Oswestry is 16% limitation in activity level. In the past year, he has been doing more fitness activity and going to a marine animal trainer 3x/wk. With the evaluation: he has poor standing posture and position of trunk, weakness of trunk and hips and decreased flexibility of hamstrings and piriformis muscle groups. Skilled PT services are indicated for modalities to decrease pain, therapeutic exercises to increase trunk & hip strength and flexibility with education for HEP and posture/body mechanics. Plan of Care Interventions Electrical Stimulation,Hot Pack/Cold Pack,Manual Therapy,Neuro Re-education,Therapeutic Activities, Therapeutic Exercise,Ultrasound,Other,pt education Other Interventions IASTM, taping PT Services Indicated Yes Treatment Frequency and 2x/wk for 8 visit total Duration These treatments will address the objective and functional deficits as defined above. The patient will be advanced safely and appropriately in order for the patient to progress towards his/her prior level of function. Additional exercises will be introduced and as well as a comprehensive home exercise program upon discharge, if needed, ?to ensure carryover of functional gains achieved in the clinic. This treatment plan has been reviewed and agreement upon by the patient.
[2024-01-15 14:55] VITALS: BP_SYST 165; BP_SYST 170
--- NOTE | 2024-01-15 16:27 | PTOPEVAL1 ---
Assessment and note entered by Yumi Hyde, PT Evaluation Information Assessment Status Evaluation for L shoulder/ Discharge for low back & hip Diagnosis pain in L shoulder ICD-10 Condition Codes (PT) M25.512 Onset October 2023 Subjective Information low back has a mind of its' own--hurts and do not know why or what causes it; am doing the back exercises at home and have work outs with a ehr trainer 3x/wk at the gym; back is better; want to finish up therapy on the back and start on the shoulder; L shoulder: pain in shoulder for about 4-5 years at that time- had xray and was told tendonitis & arthritis; stopped even trying to throw a ball years ago due to pain R or L hand; been doing more at the gym and lifting weights with ehr trainer, have been doing shoulder exercises there- single arm 40# and both arms 50# at most; history of playing softball- stopped long time ago; R hand dominant; at work, generally sit only 15-20 minutes at a time, then up/down in the office. BACK: pain range in the past week of back and hip : 0-3/10; tightness and ache in L low back, where disc is bulged; increase pain: random pain decrease pain; stretch back, heat, change positions; PRN use of tylenol for pain in low and middle back L shoulder: pain range of 0-5/10; anterior and lateral shoulder- tight, ache, pain with movement increase pain: reaching overhead, bringing glass to his mouth; lie on L side; decrease pain: rest, heat, home stim unit Reported Pain Level Pain Score 0,2: Self Report Additional Pain Score Comments BACK: pain range in the past week of back and hip : 0-3/10; tightness and ache in L low back, where disc is bulged; increase pain: random pain decrease pain; stretch back, heat, change positions; PRN use of tylenol for pain in low and middle back ; --
--- NOTE | 2024-01-15 16:29 | OPREHPOC ---
Outpatient Therapy Plan of Care This is a Multidisciplinary Plan of Care that may contain components documented by all disciplines (PT, OT, and ST.) PT Problem 1 PT Problem #1 Knowledge Deficit PT Goal 1 Goal *indep with HEP Target Visit 8 Progress Met Comment 01-15-24 d/c back met goal PT Goal 2 Goal 01-15-24 NEW GOALS: EVAL L shoulder: *indep with HEP Target Visit 16 PT Problem 2 PT Problem #2 Pain PT Goal 1 Goal 1* pain rating at worst for low back and R hip 1/ 10 2* self assessment Oswestry rating of 10% limitation Target Visit 8 Progress Not Met Comment 01-15-24 d/c back goals not met PT Goal 2 Goal 01-15-24 NEW GOALS: EVAL L shoulder: 1* pain rating at worst of 2/10 2* self assessment Quick DASH rating of 20% limitation in activity level Target Visit 16 PT Problem 3 PT Problem #3 Impaired Range of Motion PT Goal 1 Goal increase ROM of trunk and hips, to improve position of spine hamstring length with supine SLR 1* R 65' 2* L 70' piriformis stretch in supine, knee cross midline of body 3* R 4* L Target Visit 8 Progress Partially Met Comment 01-15-24 D/C back met goals 3,4 PT Goal 2 Goal 01-15-24 DIMAS L pia
--- NOTE | 2024-02-11 16:16 | PCPTNOTE ---
Patient cancelled today's physical therapy treatment.
[2024-02-19 14:30] VITALS: BP_SYST 160
--- NOTE | 2024-02-19 15:18 | PTOPDC ---
Assessment and note entered by Yumi Hyde, PT Discharge Report Assessment Status Discharge Diagnosis pain in L shoulder ICD-10 Condition Codes (PT) M25.512 Onset October 2023 Subjective Information range is better than when I started; doing all the exercises and watching my posture and keeping shoulders back; have been working with the certified personal finance counselor for overall fitness exercises; Reported Pain Level Pain Score Self Report Pain Score Self Report Additional Pain Score Comments pain range in the past week 0-3/10; top and anterior shoulder- pain when move it increase pain: using L arm, lifting overhead; decrease pain: resting; heat is not taking any pain meds for shoulder pain; Assessment PT Clinical Summary Marcos has received a total of 15 PT sessions for hip and shoulder pain. Compared to the initial evaluation for the L shoulder pain: improved with pain rating from 0-5/10 to 0-3/10; self assessment with Quick DASH of 32 to 14% limitation in activity level; increase flexion and abduction active motion to 150' and increase strength--using 5# hand weight x 10 reps through full ROM; spasms and tenderness over anterior and lateral joint- pecs, biceps and deltoid--proximal musculature; education completed for HEP and posture--increased posture awareness with sitting and computer use and with activities. The goals were partially met. Discharge PT. He is to continue with his HEP and posture correction. Plan of Care PT Services Indicated No
== END 2024-02-22 10:19 | disposition home or self-care (01) ==
LOC: ANHPT 14:30
PROVIDERS: PCP Family Medicine; Visit Provider Family Medicine
DX: M25.551 Pain in right hip (principal); M25.511 Pain in right shoulder; M25.512 Pain in left shoulder
CPT/HCPCS: 97014; 97110; 97116; 97140; 97161; 97530; G0283

== ENCOUNTER 2024-06-03 14:03 | Outpatient (CLI) | payer OTHER, SELFPAY ==
--- NOTE | ~2024-06-03 | CT_ITS ---
EXAMINATION:CT diagnostic chest wo con DATE: 06/03/2024 14:25 INDICATION: Solitary pulmonary nodule. TECHNIQUE: Computed tomography (CT) of the chest was performed without intravenous contrast. Automate d exposure control and iterative reconstruction technique were employed. The dose-length product (DLP ) was 308.38 mGy-cm. COMPARISON: Chest CT 09/03/2023, there is a 02/01 FINDINGS: There is mild scarring at right lung apex. There is a staple line in left lung apex. There is mild peripheral scarring in left lung. Foci of high attenuation at the left pleura may be changes of pleurodesis. No pleural effusion. The heart size is normal. No pericardial effusion. There are cor onary artery calcifications. There is mild chronic anterior wedging of multiple thoracic vertebral eamon dies. There is moderate thoracic spondylosis. IMPRESSION: 1. Chronic mild peripheral scarring in left lung. Reviewed, dictated and finalized at location [facility]. 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
== END 2024-06-03 14:04 | disposition home or self-care (01) ==
LOC: MICIMG 14:05
PROVIDERS: PCP Family Medicine; Visit Provider Internal Medicine Critical Care Medicine
DX: J98.4 Other disorders of lung (principal); R91.1 Solitary pulmonary nodule
CPT/HCPCS: 71250

== ENCOUNTER 2024-08-25 15:30 | Outpatient (RCR) | payer OTHER, SELFPAY ==
--- NOTE | 2024-07-08 15:23 | OPREHPOC ---
Outpatient Therapy Plan of Care This is a Multidisciplinary Plan of Care that may contain components documented by all disciplines (PT, OT, and ST.) PT Problem 1 PT Problem #1 Knowledge Deficit PT Goal 1 Goal / Goal Update *indep with HEP Target Visit 6 PT Problem 2 PT Problem #2 Impaired Flexibility PT Goal 1 Goal / Goal Update Increase R and L hip and trunk flexibility to improve posture and alignment of spine: hamstring with supine SLR 1* R 55' 2* L 55' piriformis length with supine leg cross midline of body 3* R 4* L anterior hip/quad length with prone knee flexion to 130' 5* R 6* L Target Visit 6
--- NOTE | 2024-07-08 15:23 | PTOPEVAL1 ---
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 He wants to start treatment for back first. Oswestry rating of 16% limitation in activity level. He is performing all of his home and work tasks, with some pain after heavier activities. Sleeping is not disrupted due to back pain. With the evaluation: he has good strength of trunk and hips--is doing regular fitness exercises with weight trainer 3x/wk; decreased flexibility of R and L hamstrings, piriformis, anterior hip/quads; the only motion that elicited pain was standing trunk extension; in standing he has increased lumbar lordosis and thoracic kyphosis. Skilled PT services are indicated to increase flexibility of hips and trunk, to improve alignment and balance of trunk and hips, with education for HEP. And use of modalities PRN. Plan of Care Interventions Electrical Stimulation,Hot Pack/Cold Pack,Manual Therapy,Neuro Re-education,Patient/Caregiver Education,Therapeutic Activities,Therapeutic Exercise,Ultrasound PT Services Indicated Yes Treatment Frequency and 1-2 x/wk for 6 visits Duration These treatments will address the objective and functional deficits as defined above. The patient will be advanced safely and appropriately in order for the patient to progress towards his/her prior level of function. Additional exercises will be introduced and as well as a comprehensive home exercise program upon discharge, if needed, ?to ensure carryover of functional gains achieved in the clinic. This treatment plan has been reviewed and agreement upon by the patient.
--- NOTE | 2024-07-21 14:59 | PCPTNOTE ---
Pt no call no showed his appointment this afternoon.
--- NOTE | 2024-08-25 16:11 | PTOPDC ---
Assessment and note entered by Yumi Hyde, PT Assessment Status Discharge ICD-10 Condition Codes (PT) Pain in low back M54.50 Onset Apr 2024 Subjective Information back is better, but always going to give me trouble; I have to keep up with the exercises to maintain my back; am doing everything at work and home, but slower; have been going to the gym and doing all my exercises at home from therapy; ALSO- have PT orders for L shoulder--he reports shoulder is about the same, want to go to his primary and see about an MRI to check his shoulder not want PT treatment at this time. Reported Pain Level Pain Score Self Report Additional Pain Score Comments pain range in the past week of 0-3/10; R and L lumbar areas; Assessment PT Clinical Summary Marcos has received 5 PT sessions. Compared to the initial evaluation: he has increased flexibility of bilateral hamstrings, piriformis and anterior hip/quad muscle groups. Self assessment with the Oswestry rating is the same at 16% limitation in activity level. Pain rating from 1-3/10 to 0-3/10 in lumbar area. Education has been completed for HEP and body mechanics/posture. The goals were achieved except anterior hip/quad length. His orders also included eval and treatment for L shoulder. He does not want treatment for his L shoulder at this time. Discharge PT. He is to continue with his HEP and monitor activity level to manage his pain. Plan of Care PT Services Indicated No
== END 2024-08-26 12:35 | disposition home or self-care (01) ==
LOC: ANHPT 15:30
PROVIDERS: PCP Family Medicine; Visit Provider Family Medicine
DX: M25.512 Pain in left shoulder (principal); M54.50 Low back pain, unspecified
CPT/HCPCS: 97110; 97161; 97530

== ENCOUNTER 2024-10-01 08:10 | Outpatient (CLI) | payer OTHER, SELFPAY ==
--- OUTSIDE RECORDS SUMMARY | 2024-10-01 08:14 | XMS_ITS | Referral Summary ---
Author Organization [facility] [address] Address [address] [place] [address] Care Team Providers Care Library Historian Name Role Phone Ronan Leyva MD Primary Care Provider [phone] Allergies Active Allergy Reactions Criticality Noted Date Comments Amoxicillin-Pot Clavulanate Meperidine Sulfa (Sulfonamide Antibiotics) Medications NovoLOG Flexpen U-100 Insulin 100 unit/mL (3 mL) insulin pen 20 Units 3 (three) times a day with meals 0 Active ProAir HFA 90 mcg/actuation inhaler 2 puffs as needed 0 Active insulin glargine (LANTUS,BASAGLAR) 100 unit/mL (3 mL) insulin pen 80 Units 2 (two) times a day Active fluticasone furoate-vilantero L (BREO ELLIPTA) 100-25 mcg/dose diskus inhaler Inhale 1 puff daily Rinse mouth with water after use. Do not swallow. Active gabapentin (NEURONTIN) 300 mg capsule 1 capsule (300 mg total) nightly 0 Active montelukast (SINGULAIR) 10 mg tablet 1 tablet (10 mg total) nightly 0 Active testosterone cypionate (DEPO-TESTOTERONE ) 200 mg/mL injection every 14 (fourteen) days 3 0 Active atorvastatin (LIPITOR) 20 mg tablet 3 Active irbesartan (AVAPRO) 150 mg tablet 3 Active traZODone (DESYREL) 100 mg tablet 3 Active Jardiance 25 mg tablet 3 Active Mounjaro 10 mg/0.5 mL pen injector ADMINISTER 10 MG UNDER THE SKIN WEEKLY FOR 4 WEEKS 3 Active HumuLIN R U-500 500 unit/mL (3 mL) CONCENTRATED pen for injection 3 Active Trelegy Ellipta 200-62.5-25 mcg inhaler 3 Active sertraline (ZOLOFT) 50 mg tablet 4 Active Active Problems Problem Noted Date Diagnosed Date Mild cognitive impairment 03/03/2024 Assessment & Plan (03/03/2024 2:43 PM CDT): Overall, stable testing scores. We discussed how it is unlikely that patient has a neurodegenerative disease. His job has been very stressful for him. I recommended seeing a counselor or therapist to help with this. We also discussed managing cardiovascular factors such as eating healthy, exercising, and managing blood pressure/glucose/cholesterol levels. Information was provided on the [employer] in which the patient expressed interest. Follow-up scheduled with Dr. Jacques in March 2025. Angina pectoris, unstable 09/12/2019 Obstructive sleep apnea syndrome 09/12/2019 Morbid obesity 09/12/2019 Diabetes mellitus 08/22/2011 Bronchial asthma 08/22/2011 Hypertension 08/22/2011 Social History Tobacco Use Types Packs/Day Years Used Date Smoking Tobacco: Never Smokeless Tobacco: Never Tobacco Cessation:Counseling Given: Not Answered Alcohol Use Standard Drinks/Week Comments Never 0 (1 standard drink = 0.6 oz pur e alcohol) AUDIT-C Answer Date Recorded Q1: How often do you have a drink containing alc ohol? 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 Gender Identity Not on file Sexual Orientation Not on file Last Filed Vital Signs Vital Sign Reading Time Taken Comments Blood Pressure 107/66 03/03/2024 1:53 PM CDT Pulse 79 03/03/2024 1:53 PM CDT Temperature 36.8 C (98.3 F) 03/03/2024 1:53 PM CDT Respiratory Rate - - Oxygen Saturation 96% 03/03/2024 1:53 PM CDT Inhaled Oxygen Concentration - - Weight 112.3 kg (247 lb 8 oz) 03/03/2024 1:53 PM CDT Height 180.3 cm (5' 11 ) 03/03/2024 1:53 PM CDT Body Mass Index 34.52 03/03/2024 1:53 PM CDT Plan of Treatment Not on file Procedures Procedure Name Priority Date/Time Associated Diagnosis Comments POCT LIPID PANEL Routine 09/12/2019 12:5 6 PM PICTURE COPYIST Chest pain, unspecified type from Last 3 Months or Most Recently Relevant to Health Maintenance Results * POCT lipid panel (09/12/2019 12:56 PM PICTURE COPYIST) Cholesterol, POC 225 mg/dL HDL, POC 29 mg/dL Triglycerides, POC 420 mg/dL LDL Cholesterol POC 140 mg/dL Chol/HDL Ratio, POC 7.6 Non-HDL Cholesterol, POC 195 mg/dL Cholesterol Total, POC 225 mg/dL Blood specimen (specimen) 09/12/2019 12:56 PM PICTURE COPYIST Yahaira Olvera MD POINT OF CARE TEST O RDERABLES Final Result from Last 3 Months or Most Recently Relevant to Health Maintenance Insurance [facility] Care Teams Library Historian Relationship Specialty Start Date End Date Ronan Leyva MD [address] [place] [address] [place] [address] PCP - General Family Medicine 06/25/23
--- OUTSIDE RECORDS SUMMARY | 2024-10-01 08:14 | XMS_ITS ---
Author Organization [facility] Address [address] [place] [address] Care Team Providers Care Passenger Barge Master Name Role Phone Ronan Leyva M.D. Primary Care Provider Myah vailaJacob Camacho [phone] Misty Ralph Unavailable Unavailable REASON FOR VISIT FYI only Encounters Encounter Location Date Provider Diagnosis [address] [address] 04/09/2023 Jacob Gardner Plan Of Treatment No Information Progress Notes * Marcos HUMPHRIESDOB:1965 ([age] yo M)Acc No.[id number]:04/09/2023 Patient: Marcos Ibarra :1965 A ge:57 Y S ex:Male Address:[address] [place] [address] * true * Date: Generated for Printi ng/Fashabanag/eTransmitting on: 0 10/01/2024 08:13 AM CDT
--- OUTSIDE RECORDS SUMMARY | 2024-10-01 08:14 | XMS_ITS | Clinical Summary ---
Author Organization [facility] Address [address] [facility] [place] [address] Phone Care Team Providers Care Call Circuit Worker Name Role Phone Fredy Madden MD Primary Care Provider Allergies Active Allergy Reactions Criticality Noted Date Comments Meperidine Swelling Low 03/06/2011 Penicillins Swelling Low 03/06/2011 Medications fluticasone-salmeter ol (ADVAIR DISKUS) 500-50 mcg/dose Inhalation DsDv Take 2 Puffs by inhalation 2 times daily. Active montelukast (SINGULAIR) 10 mg Oral tablet Take 10 mg by mouth daily at bedtime. Active lisinopril (PRINIVIL) 10 mg Oral tablet Take 10 mg by mouth daily at bedtime. Active fenofibrate nanocrystallized (TRICOR) 145 mg Oral tablet Take 145 mg by mouth daily at bedtime. Active insulin glargine (LANTUS SOLOSTAR) 100 unit/mL subCUT Inject 120 Units by subcutaneous injection daily at bedtime. Active ALBUTEROL (PROVENTIL INHALATION) Take 2 Puffs by inhalation daily. Active Fluticasone (FLOVENT DISKUS) 250 mcg/Actuation Inhalation DsDv Take 250 mcg by inhalation every 12 hours. 3 Inhaler 3 03/06/20 11 Active losartan (COZAAR) 50 mg tablet Take 50 mg by mouth daily. Active insulin aspart (NovoLOG) 100 unit/mL injection Inject by subcutaneous injection. Active albuterol (PROVENTIL,VENTOLIN) 0.63 mg/3 mL Solution for Nebulization Take 0.63 mg by inhalation every 6 hours as needed for Shortness of Breath. Active Active Problems Problem Noted Date Diagnosed Date Morbid obesity with BMI of 40.0-44.9, adult 11/10 Extrinsic asthma, unspecified 03/06/2011 Obstructive sleep apnea (adult) (pediatric) 02/11 Immunizations Immunization Administration Dates Next Due Influenza Seasonal Unspecified Formulation IM Family History Medical History Relation Name Comments Asthma Father Diabetes Father Heart Failure Maternal Grandfather Hypertension Maternal Grandfather Asthma Mother Hypertension Mother Bronchitis Neg Hx Cancer Neg Hx Emphysema Neg Hx Lung Cancer Neg Hx Mesothelioma Neg Hx Relation Name Status Comments Father Maternal Grandfather Mother Social History Tobacco Use Types Packs/Day Years Used Date Smoking Tobacco: Never Alcohol Use Standard Drinks/Week Comments Not Asked 0 (1 standard drink = 0.6 oz pur e alcohol) Sex and Gender Information Value Date Recorded Sex Assigned at Not on file 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 Gender Identity Not on file Sexual Orientation Not on file Last Filed Vital Signs Vital Sign Reading Time Taken Comments Blood Pressure 126/64 11/27/2016 3:26 PM CDT Pulse 93 11/27/2016 3:26 PM CDT Temperature - - Respiratory Rate 14 11/27/2016 3:26 PM CDT Oxygen Saturation 96% 11/27/2016 3:26 PM CDT RA Inhaled Oxygen Concentration - - Weight 142.4 kg (314 lb) 11/27/2016 3:26 PM CDT Height 182.9 cm (6') 11/27/2016 3:26 PM CDT Body Mass Index 42.59 11/27/2016 3:26 PM CDT Plan of Treatment Health Maintenance Due Date Last Done Comments Pre-Diabetes and Diabetes Screening 1965 DTAP/TDAP/TD VACCINES (1 - Tdap) 1982 PNEUMOCOCCAL VACCINE 0-49 YEARS (1 of 2 - PCV) 982 COLORECTAL SCREENING 2008 Colorectal Cancer Screening 2008 FIT-DNA Q 3 years 2008 FIT/FOBT Q 1 year 2008 Flex Sig/CT Colonography Q 5 years 2008 ZOSTER VACCINE (1 of 2) 2013 RSV VACCINE (60+ or ) (1 - Risk 60-74 years 1-dose series) 2023 INFLUENZA VACCINE (#1) 2024 04/29/2016 Insurance [facility] BLUE PREFERRED Care Teams Call Circuit Worker Relationship Specialty Start Date End Date Fredy Madden MD [address] [place] [id number] PCP - General Family Practice 09/04/11
--- OUTSIDE RECORDS SUMMARY | 2024-10-01 08:14 | XMS_ITS ---
Author Organization Health system Address [address] [place] [address] Care Team Providers Care Patternmaker Metal Bench Name Role Phone Ronan Leyva M.D. Primary Care Provider Myah vailaJacob Camacho Unavailable [phone] Misty Ralph Unavailable Unavailable REASON FOR VISIT couldn't understand voicemail Encounters Encounter Location Date Provider Diagnosis [facility] [address] [place] [address] 04/13/2023 Jacob Gardner Plan Of Treatment No Information Progress Notes * Marcos HUMPHRIESDOB:1965 ([age] yo M)Acc No.[id number]:04/13/2023 Patient: Moe francisMarcos farr :1965 A ge:57 Y S ex:Male Address:[address] [place] [address] * true * Date: Generated for Printi ng/Fashabanag/eTransmitting on: 0 10/01/2024 08:14 AM CDT
--- OUTSIDE RECORDS SUMMARY | 2024-10-01 08:14 | XMS_ITS ---
Author Organization [facility] Address [address] [place] [address] Care Team Providers Care Type Cutter Name Role Phone Ronan Leyva M.D. Primary Care Provider Myah Jacob Valdes Unavailable [phone] Misty Ralph Unavailable Unavailable ZZ-Migration, Provider Unavailable Unavailab le Allergies Allergen (clinical drug ingredient) Drug/Non Drug Allergy documented on EMR Reaction Allergy Type Onset Date Status Penicillin rash Drug Allergy Active REASON FOR VISIT [facility] Conversion Encounter Medications Medication SIG (Take, [...] hours Active NASAL WASHES N/A DIRECTED INTRANASALLY NEEDED for 30 *Please review for potential replacement for e-prescription and drug interaction check* 03/03/2023 Active Montelukast Sodium 10 MG 1 tab(s) orally once a day Active EpiPen 2-Dereje 0.3 MG/0.3ML as directed intramuscularly once for 30 days 03/03/2023 Active Trelegy Ellipta 100/62.5/25 MCG 1 INHALATION PO QDAY *Please review and pick correct strength-formulat ion from [employer] options. If intended option is not shown, discontinue and re-order from Quick Search* Active Fluticasone Propionate 50 MCG/ACT 2 spray(s) in each nostril BID for 30 day(s) 03/03/2023 Active Gabapentin 800 MG 1 tab(s) orally 3 times a day Active Fluticasone Propionate 50 MCG/ACT 2 spray(s) in each nostril BID for 30 day(s) 02/10/2023 Active Mounjaro 12.5 MG/0.5 ML DIRECTED SUBCUTANEOUSLY ONCE A WEEK *Please review and pick correct strength-formulat ion from [employer] options. If intended option is not shown, discontinue and re-order from Quick Search* Active Cetirizine HCl 10 MG 1 tab(s) orally once a day for 30 days 03/03/2023 Active Encounters Encounter Location Date Provider Diagnosis [address] [place] [address] 12/26/2023 Provider ZZ-Migration Plan Of Treatment No Information Progress Notes * Marcos HUMPHRIESDOB:1965 ([age] yo M)Acc No.[id number]:12/26/2023 Patient: Marcos ROMO Provider: Shantel Michel :1965 A ge:58 Y S ex:Male Date:12/26/2023 Address:[address] [place], [place] [id number] Pcp:Ronan Leyva M.D. Subjective: * Chief Complaints: * 1 . [facility] Conversion Encounter. * Medical History: * Medications: T aking Trelegy Ellipta 100/62.5/25 MCG DPI 1 INHALATION PO QDAY , Notes to Pharmacist: *Please review and pick correct strength-formulation from V[employer]itan options. If intended option is not shown, [...] *Please review and pick correct strength-formulation from [employer] options. If intended option is not shown, [...] * Electronic signature of Joe BHAT-Migration on 10/01/2024 at 08:14 AM CDT Sign off status: Pending * Provider: Shantel thayer Migration Date: 0 12/26/2023 Generated for Keny garza/Gena/Isaac on: 10/01/2024 08:14 AM CDT
--- OUTSIDE RECORDS SUMMARY | 2024-10-01 08:14 | XMS_ITS | Clinical Summary ---
Author Organization [facility] [address] Address [address] [place] [address] Care Team Providers Care Biomedical Engineer Name Role Phone Ronan Leyva MD Primary Care Provider [phone] Allergies Active Allergy Reactions Criticality Noted Date [...] pressure/glucose/cholesterol levels. Information was provided on the [employer] Project in which the patient expressed interest. Follow-up scheduled with Dr. Jacques in March 2025. Angina pectoris, unstable 09/12/2019 Obstructive sleep apnea syndrome 09/12/2019 Morbid obesity 09/12/2019 Diabetes mellitus 08/22/2011 Bronchial asthma 08/22/2011 Hypertension 08/22/2011 Surgical History Surgery Date Site/Laterality Comments LUNG SURGERY HERNIA REPAIR HERNIA SURGERY WITH MESH Medical History Medical History Date Comments Diabetes mellitus (HCC) Hyperlipidemia Hypertension Asthma Pneumothorax Family History Medical History Relation Name Comments Memory loss Father Memory loss Mother Cancer Other 1 Cancer - (Added by TW Conv) Diabetes Other 2 Diabetes Mellit us - (Added by TW Conv) Relation Name Status Comments Father Alive Mother Alive COPD, ASTHMA, Other 1 Other 2 Social History Tobacco Use Types Packs/Day Years [...] on file 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 Gender Identity Not on file Sexual Orientation Not on file Obstetrics History Last Filed Vital Signs Vital Sign Reading [...] 03/03/2024 1:53 PM CDT Plan of Treatment Health Maintenance Due Date Last Done Comments Albumin Creatinine Ratio, Urine 1965 Colon Cancer Screening-Colonoscopy 1965 Depression Screening 1965 Hemoglobin A1C 1963 Hepatitis C Screening 1963 Prostate Cancer Screening-PSA 1963 eGFR 1963 Dilated Eye Exam 1963 Foot Exam 1963 DTaP/Tdap/Td Vaccine (1 - Tdap) 1974 Hepatitis B Screening 1981 Regular Well Visit/Exam 18-64 1981 Pneumococcal vaccine <65 (1 of 2 - PCV) 1982 Zoster Vaccine (1 of 2) 2013 Lipid Panel 09/11/2020 09/12/2019 Influenza Vaccine (#1) 2024 9, 04/14/2018, 04/29/2016 Procedures Procedure Name Priority Date/Time Associated Diagnosis Comments POCT LIPID PANEL Routine 09/12/2019 12:5 6 PM AMMUNITION AND EXPLOSIVES HANDLER Chest pain, unspecified type from Last 3 Months or Most Recently Relevant to Health Maintenance Results * POCT lipid panel (09/12/2019 12:56 PM AMMUNITION AND EXPLOSIVES HANDLER) Cholesterol, POC 225 mg/dL HDL, POC 29 mg/dL Triglycerides, POC 420 mg/dL LDL Cholesterol POC 140 mg/dL Chol/HDL Ratio, POC 7.6 Non-HDL Cholesterol, POC 195 mg/dL Cholesterol Total, POC 225 mg/dL Blood specimen (specimen) 09/12/2019 12:56 PM AMMUNITION AND EXPLOSIVES HANDLER Yahaira Olvera MD POINT OF CARE TEST O RDERABLES Final Result from Last 3 Months or Most Recently Relevant to Health Maintenance Insurance [facility] Address: [address] [address] [place] [address] [facility]/PPO Address: [address] [address] [place] [address] [facility] H[facility]/PPO Address: [address] [address] Care Teams Biomedical Engineer Relationship Specialty Start Date End Date Ronan Leyva MD [facility] [address] [place], [place] [id number] PCP - General Family Medicine 06/25/23
--- OUTSIDE RECORDS SUMMARY | 2024-10-01 08:14 | XMS_ITS | Patient Health Record ---
Author Organization [facility] Address [address] [place] [address] Care Team Providers Care Service Station Manager Name Role Phone Ronan Leyva M.D. Primary Care Provider Myah Jacob Valdes Unavailable [phone] Misty Ralph Unavailable Unavailable ZZ-Migration, Provider Unavailable Unavailab le Allergies Allergen (clinical drug ingredient) Drug/Non Drug Allergy documented on EMR Reaction Allergy Type Onset Date Status Penicillin rash Drug Allergy Active Reason For Referral No Information Medications Medication SIG (Take, Route, Frequency, Duration) Notes Start Date End Date Status Atorvastatin Calcium 20 MG 1 tab(s) orally once a day Active Jardiance 25 MG 1 tab(s) orally once a day (in the morning) Active Gabapentin 800 MG 1 tab(s) orally 3 times a day Active TRAZADONE 50MG 1 BY MOUTH AT BEDTIME *Please re view for potential replacement for e-prescription and drug interaction check* Active TRELEGY ELLIPTA 100/62.5/25 mcg 1 inhalation PO Qday Acti ve ALBUTEROL 90 mcg/inh 2 puff(s) inhaled every 6 hours Active JARDIANCE 25 mg 1 tab(s) orally once a day (in the morning) Active MONTELUKAST 10 mg 1 tab(s) orally once a day Active LISINOPRIL 5 mg 1 tab(s) orally once a day Active NASAL WASHES N/A DIRECTED INTRANASALLY NEEDED for 30 *Please review for potential replacement for e-prescription and drug interaction check* 03/03/2023 Active EpiPen 2-Dereje 0.3 MG/0.3ML as directed intramuscularly once for 30 days 03/03/2023 Active ATORVASTATIN 20 mg 1 tab(s) orally once a day Active Fluticasone Propionate 50 MCG/ACT 2 spray(s) in each nostril BID for 30 day(s) 02/10/2023 Active Mounjaro 12.5 MG/0.5 ML DIRECTED SUBCUTANEOUSLY ONCE A WEEK *Please review and pick correct strength-formulat ion from [employer] options. If intended option is not shown, discontinue and re-order from Quick Search* Active Fluticasone Propionate 50 MCG/ACT 2 spray(s) in each nostril BID for 30 day(s) 03/03/2023 Active Cetirizine HCl 10 MG 1 tab(s) orally once a day for 30 days 03/03/2023 Active FLUTICASONE NASAL 50 mcg/inh 2 spray(s) in each nostril BID for 30 day(s) 03/03/2023 Active EPIPEN 2-DEREJE 0.3 mg as directed intramuscularly once for 30 days 03/03/2023 Active GABAPENTIN 800 mg 1 tab(s) orally 3 times a day Active FLUTICASONE NASAL 50 mcg/inh 2 spray(s) in each nostril BID for 30 day(s) 02/10/2023 Active MOUNJARO 12.5 mg/0.5 mL as directed subcutaneously once a week Active Lisinopril 5 MG 1 tab(s) orally once a day Active Montelukast Sodium 10 MG 1 tab(s) orally once a day Active CETIRIZINE 10 mg 1 tab(s) orally once a day for 30 days 03/03/2023 Active Albuterol Sulfate HFA 108 (90 Base) MCG/ACT 2 puff(s) inhaled every 6 hours Active Trelegy Ellipta 100/62.5/25 MCG 1 INHALATION PO QDAY *Please review and pick correct strength-formulat ion from [employer] options. If intended option is not shown, discontinue and re-order from Quick Search* Active Social History Tobacco Use: Social History Observation Description Date Details (start date - stop date) Never Smoker NA - NA Smoking Smart Form: Question Answer Notes Are you a: never smoker Problems Problem Type SNOMED Code ICD Code Onset Dates Problem Status W/U Status Risk Notes Problem Chronic allergic conjunctivitis (55158749) Other chronic allergic conjunctivitis (H10.45) Active confirmed Problem Allergic rhinitis caused by pollen (disorder) (87474305) Allergic rhinitis due to pollen (J30.1) Active confirmed Problem Allergic rhinitis (37628268) Other allergic rhinitis (J30.89) Active confirmed Problem Chronic rhinitis (50770542) Chronic rhinitis (J31.0) Active confirmed Problem Hypertrophy of nasal turbinates (10590908) Hypertrophy of nasal turbinates (J34.3) Active confirmed Problem Uncomplicated moderate persistent asthma (953892883) Moderate persistent asthma, uncomplicated (J45.40) Active confirmed Problem Allergic rhinitis caused by animal hair and dander (340244468003298) Allergic rhinitis due to animal (cat) (dog) hair and dander (J30.81) Active confirmed Problem Essential hypertension (13885063) Essential (primary) hypertension (I10) Active confirmed Encounters Encounter Location Date Provider Diagnosis [address] [address] 12/26/2023 Provider ZZ-Migration Plan Of Treatment Pending Test Test Name Order Date IMMUNOGLOBULIN G 02/10/2023 CBC (INCLUDES DIFF/PLT) 02/10/2023 Insurance Providers Payer Name Payer Address Payer Phone Subscriber Number Group Number Insured Name Patient Relationship to Insured Coverage Start Date Coverage End Date R [address] [address] [place], [place] [phone] [id number] Dania Hunter Spouse - patient is the spouse of the insured Medical (General) History Medical History History ICD Code Essential (primary) hypertension I10 NEUROPATHY IN OTHER DIS 357.4 Diabetes insipidus E23.2 Hyperlipidemia, unspecified E78.5 Surgical History Surgery Date(Month/Year) Left lung collapsed 06/1982 Left lung collapsed 09/1992 Hernia repair SINUS SURGERY PROCEDURE Hospitalization History Reason Date(Month/Year) asthma exacerbation
[2024-10-01 08:36] LABS: Hematocrit 46.7 % (42.0-52.0); Hemoglobin 15.4 g/dL (14.0-18.0); Mean Corpuscular Hemoglobin 29.8 pg (26-34); Mean Corpuscular Volume 90.5 fl (80-100); Mean Platelet Volume 9.2 fl (7.4-10.4); Platelet Count Result 188 k/mm3 (150-375); Red Blood Count 5.16 M/mm3 (4.6-6.20); Red Cell Distribution Width 12.4 % (11.5-14.5); White Blood Count 4.8 K/mm3 (4.5-10.0)
[2024-10-01 08:52] LABS: Alanine Aminotransferase 34 U/L (6-50); Albumin Level 4.7 g/dL (3.5-5.1); Alkaline Phosphatase 72 U/L (38-126); Anion Gap 8 mmol/L (4-12); Aspartate Amino Transferase 29 U/L (17-59); Bilirubin,Total 0.7 mg/dL (0.2-1.3); Blood Urea Nitrogen 22 mg/dL (9-20); Calcium 9.9 mg/dL (8.4-10.2); Carbon Dioxide 29 mmol/L (22-30); Chloride 102 mmol/L (98-107); Cholesterol 153 mg/dL (0-200); Estimated Glomerular Filt Rate > 60; Glucose 122 mg/dL (65-110); HDL Direct 49 mg/dL; Potassium 4.2 mmol/L (3.4-5.0); Sodium 139 mmol/L (137-145); Triglycerides 111 mg/dL (<150)
[2024-10-01 09:02] LABS: LDL Cholesterol Direct 72 mg/dL
[2024-10-01 09:21] LABS: Prostate Specific Antigen 0.3 ng/mL (< OR = 4.0)
[2024-10-01 09:51] LABS: Free T4 Free Thyroxine 1.44 ng/dL (0.78-2.19); Vitamin D 25 Hydroxy 40.2 ng/mL
[2024-10-01 10:22] LABS: Hepatitis C Virus Antibody Negative (Negative)
[2024-10-01 10:28] LABS: Creatinine Urine 65.7 mg/dL
[2024-10-01 10:36] LABS: MALB Creatinine Ratio 11.1 mg/g (0-30); Microalbumin Urine Random 7.3 mg/L (0-16.7)
== END 2024-10-01 08:11 | disposition home or self-care (01) ==
PROVIDERS: Family Medicine; PCP Family Medicine; Visit Provider Nurse Practitioner Family
DX: E11.65 Type 2 diabetes mellitus with hyperglycemia (principal); Z79.4 Long term (current) use of insulin; E66.01 Morbid (severe) obesity due to excess calories; Z68.41 Body mass index [BMI] 40.0-44.9, adult; E78.2 Mixed hyperlipidemia; R53.83 Other fatigue; E11.40 Type 2 diabetes mellitus with diabetic neuropathy, unspecified; E66.9 Obesity, unspecified; I10 Essential (primary) hypertension; R79.89 Other specified abnormal findings of blood chemistry; E29.1 Testicular hypofunction
CPT/HCPCS: 36415; 80053; 80061; 82043; 82306; 82607; 82670; 84153; 84403; 84439; 84443; 85027; 86803; G0103

== ENCOUNTER 2025-02-10 11:23 | Outpatient (CLI) | payer OTHER, SELFPAY ==
--- OUTSIDE RECORDS SUMMARY | 2025-02-10 11:29 | XMS_ITS | Clinical Summary ---
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 Gender Identity Not on file Sexual Orientation [...] 1963 DTAP/TDAP/TD VACCINES (1 - Tdap) 1982 COLORECTAL SCREENING 2008 Colorectal Cancer Screening 2008 FIT-DNA Q 3 years 2008 FIT/FOBT Q 1 year 2008 Flex Sig/CT Colonography Q 5 years 2008 ZOSTER VACCINE (1 of 2) 2013 RSV VACCINE (60+ or ) (1 - Risk 60-74 years 1-dose series) 2023 INFLUENZA VACCINE (#1) 2025 04/29/2016 Insurance [facility] BLUE PREFERRED Care Teams Lvn Lpn Relationship Specialty Start Date End Date Fredy Madden MD [address] [place] [address] PCP - General Family Practice 09/04/11
--- OUTSIDE RECORDS SUMMARY | 2025-02-10 11:29 | XMS_ITS | Patient Health Record ---
Author Organization [facility] [employer] [place] ([address]) Address [address] [place] [address] Care Team Providers Care Contract Implementation Analyst Name Role Phone Ronan Leyva M.D. Primary Care Provider Myah Jacob Valdes Unavailable [phone] Misty aRlph Unavailable Unavailable Allergies Allergen (clinical drug ingredient) Drug/Non Drug [...] day Active NASAL WASHES N/A DIRECTED INTRANASALLY NEEDED; Duration: 30 *Please review for potential replacement for e-prescription and drug interaction check* 03/03/2023 Active EpiPen 2-Dereje 0.3 MG/0.3ML as directed intramuscularly once; Duration: 30 days 03/03/2023 Active ATORVASTATIN 20 mg 1 tab(s) orally once a day Active Fluticasone Propionate 50 MCG/ACT 2 spray(s) in each nostril BID; Duration: 30 day(s) 02/10/2023 Active Mounjaro 12.5 MG/0.5 ML DIRECTED SUBCUTANEOUSLY ONCE A WEEK *Please review and pick correct strength-formulat ion from [employer] options. If intended option is not shown, discontinue and re-order from Quick Search* Active Fluticasone Propionate 50 MCG/ACT 2 spray(s) in each nostril BID; Duration: 30 day(s) 03/03/2023 Active Cetirizine HCl 10 MG 1 tab(s) orally once a day; Duration: 30 days 03/03/2023 Active FLUTICASONE NASAL 50 mcg/inh 2 spray(s) in each nostril BID; Duration: 30 day(s) 03/03/2023 Active EPIPEN 2-DEREJE 0.3 mg as directed intramuscularly once; Duration: 30 days 03/03/2023 Active GABAPENTIN 800 mg 1 tab(s) orally 3 times a day Active FLUTICASONE NASAL 50 mcg/inh 2 spray(s) in each nostril BID; Duration: 30 day(s) 02/10/2023 Active MOUNJARO 12.5 mg/0.5 mL as directed subcutaneously once a week Active Lisinopril 5 MG 1 tab(s) orally once a day Active Montelukast Sodium 10 MG 1 tab(s) orally once a day Active CETIRIZINE 10 mg 1 tab(s) orally once a day; Duration: 30 days 03/03/2023 Active Albuterol Sulfate HFA 108 (90 Base) MCG/ACT 2 puff(s) inhaled every 6 hours Active Trelegy Ellipta 100/62.5/25 MCG 1 INHALATION PO QDAY *Please review and pick correct strength-formulat ion from [employer] options. If intended option is not shown, [...] Status Risk Notes Problem Chronic allergic conjunctivitis (46237851) Other chronic allergic conjunctivitis (H10.45) Active confirmed Problem Allergic rhinitis caused by pollen (disorder) (00911376) Allergic rhinitis due to pollen (J30.1) Active confirmed Problem Allergic rhinitis (25137517) Other allergic rhinitis (J30.89) Active confirmed Problem Chronic rhinitis (53961278) Chronic rhinitis (J31.0) Active confirmed Problem Hypertrophy of nasal turbinates (91641365) Hypertrophy of nasal turbinates (J34.3) Active confirmed Problem Uncomplicated moderate persistent asthma (661036880) Moderate persistent asthma, uncomplicated (J45.40) Active confirmed Problem Allergic rhinitis caused by animal hair and dander (030911298355004) Allergic rhinitis due to animal (cat) (dog) hair and dander (J30.81) Active confirmed Problem Essential hypertension (95992293) Essential (primary) hypertension (I10) Active confirmed Plan Of Treatment Pending Test Test Name Order Date IMMUNOGLOBULIN G 02/10/2023 CBC (INCLUDES DIFF/PLT) 02/10/2023 Insurance Providers Payer Name Payer Address Payer Phone Subscriber Number Group Number Insured Name Patient Relationship to Insured Coverage Start Date Coverage End Date [facility] [address] [address] [place], [place] [id number] [phone] [id number] Dania Correa Spouse - patient is the spouse of the insured Medical (General) History Medical History History ICD Code Essential (primary) hypertension I10 NEUROPATHY IN OTHER DIS 357.4 Diabetes insipidus E23.2 Hyperlipidemia, unspecified E78.5 Surgical History Surgery Date(Month/Year) Left lung collapsed 06/1982 Left lung collapsed 09/1992 Hernia repair SINUS SURGERY PROCEDURE Hospitalization History Reason Date(Month/Year) asthma exacerbation
--- OUTSIDE RECORDS SUMMARY | 2025-02-10 11:30 | XMS_ITS | Referral Summary ---
Author Organization [facility] [place] [address] Address [address] [place] [address] Care Team Providers Care Offender Job Retention Specialist Name Role Phone Ronan Leyva MD Primary Care Provider [phone] Allergies Active Allergy Reactions Criticality Noted Date [...] pressure/glucose/cholesterol levels. Information was provided on the [employer] Project in which the patient expressed interest. 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 Gender Identity Not on file Sexual Orientation [...] 1:53 PM CDT Height 180.3 cm (5' 11) 03/03/2024 1:53 PM CDT Body Mass Index 34.52 03/03/2024 1:53 PM CDT Plan of Treatment Not on file Procedures Procedure Name Priority Date/Time Associated Diagnosis Comments POCT LIPID PANEL Routine 09/12/2019 12:5 6 PM BIOMEDICAL REPAIR TECHNICIAN Chest pain, unspecified type from Last 3 Months or Most Recently Relevant to Health Maintenance Results * POCT lipid panel (09/12/2019 12:56 PM BIOMEDICAL REPAIR TECHNICIAN) Cholesterol, POC 225 mg/dL HDL, POC 29 mg/dL Triglycerides, POC 420 mg/dL LDL Cholesterol POC 140 mg/dL Chol/HDL Ratio, POC 7.6 Non-HDL Cholesterol, POC 195 mg/dL Cholesterol Total, POC 225 mg/dL Blood specimen (specimen) 09/12/2019 12:56 PM BIOMEDICAL REPAIR TECHNICIAN Yahaira Olvera MD POINT OF CARE TEST O RDERABLES Final Result from Last 3 Months or Most Recently Relevant to Health Maintenance Insurance [facility] CHOICE PLUS [facility] Care Teams Offender Job Retention Specialist Relationship Specialty Start Date End Date Ronan Leyva MD [address] [place] [address] [place] [address] PCP - General Family Medicine 06/25/23
--- OUTSIDE RECORDS SUMMARY | 2025-02-10 11:30 | XMS_ITS ---
Author Organization [facility] [employer] [place] ([address]) Address [address] [place] [address] Care Team Providers Care Drapery And Upholstery Measurer Name Role Phone Ronan Leyva M.D. Primary Care Provider Myah Jacob Valdes Unavailable [phone] Misty Ralph Unavailable Unavailable [employer], Provider Unavailable Unavailab le Allergies Allergen (clinical drug ingredient) Drug/Non Drug Allergy documented on EMR Reaction Allergy Type Onset Date Status Penicillin rash Drug Allergy Active REASON FOR VISIT [facility] To [facility] Conversion Encounter Medications Medication SIG (Take, [...] Active Encounters Encounter Location Date Provider Diagnosis [address] [address] 12/26/2023 Provider ZJosh-Migration Plan Of Treatment No Information Progress Notes * Marcos HUMPHRIESDOB:1965 ([age] yo M)Acc No.[id number]:12/26/2023 Patient: Marcos ROMO Provider: Shantel Michel :1965 A ge:58 Y S ex:Male Date:12/26/2023 Address:[address] [place], [place] [id number] Pcp:Ronan Leyva M.D. Subjective: * Chief Complaints: * [facility] * Medical History: * [...] *Please review and pick correct strength-formulation from [employer] options. If intended option is not shown, [...] * Electronic signature of Joe BHAT-Migration on 02/10/2025 at 11:29 AM CDT Sign off status: Pending * Provider: Shantel thayer Migration Date: 0 12/26/2023 Generated for Keny garza/Gena/Isaac on: 02/10/2025 11:29 AM CDT
--- OUTSIDE RECORDS SUMMARY | 2025-02-10 11:30 | XMS_ITS | Clinical Summary ---
Author Organization [facility] [place] [address] Address [address] [place] [address] Care Team Providers Care Metalworking Instructor Name Role Phone Ronan Leyva MD Primary Care Provider [phone] Allergies Active Allergy Reactions Criticality Noted Date [...] pressure/glucose/cholesterol levels. Information was provided on the [employer] Project in which the patient expressed interest. 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 Gender Identity Not on file Sexual Orientation [...] Lipid Panel 09/11/2020 09/12/2019 Influenza Vaccine (#1) 2025 9, 04/14/2018, 04/29/2016 Procedures Procedure Name Priority Date/Time Associated Diagnosis Comments POCT LIPID PANEL Routine 09/12/2019 12:5 6 PM LICENSED CLINICAL SOCIAL WORKER Chest pain, unspecified type from Last 3 Months or Most Recently Relevant to Health Maintenance Results * POCT lipid panel (09/12/2019 12:56 PM LICENSED CLINICAL SOCIAL WORKER) Cholesterol, POC 225 mg/dL HDL, POC 29 mg/dL Triglycerides, POC 420 mg/dL LDL Cholesterol POC 140 mg/dL Chol/HDL Ratio, POC 7.6 Non-HDL Cholesterol, POC 195 mg/dL Cholesterol Total, POC 225 mg/dL Blood specimen (specimen) 09/12/2019 12:56 PM LICENSED CLINICAL SOCIAL WORKER Yahaira Olvera MD POINT OF CARE TEST O RDERABLES Final Result from Last 3 Months or Most Recently Relevant to Health Maintenance Insurance [facility] Care Teams Metalworking Instructor Relationship Specialty Start Date End Date Ronan Leyva MD [facility] [address] [address] [place], [place] [id number] PCP - General Family Medicine 06/25/23
[2025-02-10 12:03] LABS: Hematocrit 45.0 % (42.0-52.0); Hemoglobin 14.9 g/dL (14.0-18.0)
[2025-02-10 12:48] LABS: Prostate Specific Antigen 0.4 ng/mL (< OR = 4.0)
[2025-02-14 15:09] LABS: Free Testosterone (Direct) 2.5 pg/mL (6.6-18.1)
[2025-02-16 16:08] LABS: Estradiol, Sensitive 9.5 pg/mL (8.0-35.0)
== END 2025-02-10 11:24 | disposition home or self-care (01) ==
LOC: ANHLAB 11:27
PROVIDERS: PCP Family Medicine; Visit Provider Urology
DX: E29.1 Testicular hypofunction (principal); Z12.5 Encounter for screening for malignant neoplasm of prostate
CPT/HCPCS: 36415; 82670; 84153; 84402; 84403; 85014; 85018; G0103

== ENCOUNTER 2025-05-09 10:04 | Outpatient (CLI) | payer OTHER, SELFPAY ==
--- OUTSIDE RECORDS SUMMARY | 2023-12-26 16:30 | XMS_ITS ---
Author Organization [facility] ([address]) Address [address] [place] [address] Care Team Providers Care Linen Folder Name Role Phone Ronan Leyva M.D. Primary Care Provider Myah Jacob Valdes Unavailable [phone] Misty Ralph Unavailable Unavailable [facility], Provider Unavailable Unavailab le Allergies Allergen (clinical drug ingredient) Drug/Non Drug Allergy documented on EMR Reaction Allergy Type Onset Date Status Penicillin rash Drug Allergy Active REASON FOR VISIT [facility] To [facility] Conversion Encounter Medications Medication SIG (Take, Route, Frequency, Duration) Notes Start Date End Date Status Atorvastatin Calcium 20 MG 1 tab(s) orally once a day Active Jardiance 25 MG 1 tab(s) orally once a day (in the morning) Active TRAZADONE 50MG 1 BY MOUTH AT BEDTIME *Please re view for potential replacement for e-prescription and drug interaction check* Active Lisinopril 5 MG 1 tab(s) orally once a day Active Albuterol Sulfate HFA 108 (90 Base) MCG/ACT 2 puff(s) inhaled every 6 hours Active NASAL WASHES N/A DIRECTED INTRANASALLY NEEDED; Duration: 30 *Please review for potential replacement for e-prescription and drug interaction check* 03/03/2023 Active Montelukast Sodium 10 MG 1 tab(s) orally once a day Active EpiPen 2-Dereje 0.3 MG/0.3ML as directed intramuscularly once; Duration: 30 days 03/03/2023 Active Trelegy Ellipta 100/62.5/25 MCG 1 INHALATION PO QDAY *Please review and pick correct strength-formulat ion from Medispan options. If intended option is not shown, discontinue and re-order from Quick Search* Active Fluticasone Propionate 50 MCG/ACT 2 spray(s) in each nostril BID; Duration: 30 day(s) 03/03/2023 Active Gabapentin 800 MG 1 tab(s) orally 3 times a day Active Fluticasone Propionate 50 MCG/ACT 2 spray(s) in each nostril BID; Duration: 30 day(s) 02/10/2023 Active Mounjaro 12.5 MG/0.5 ML DIRECTED SUBCUTANEOUSLY ONCE A WEEK *Please review and pick correct strength-formulat ion from Medispan options. If intended option is not shown, discontinue and re-order from Quick Search* Active Cetirizine HCl 10 MG 1 tab(s) orally once a day; Duration: 30 days 03/03/2023 Active Encounters Encounter Location Date Provider Diagnosis [address] [address] 12/26/2023 Provider ZJosh-Migration Plan Of Treatment No Information Progress Notes * Marcos HUMPHRIESDOB:1965 ([age] yo M)Acc No.[id number]:12/26/2023 Patient: Marcos ROMO Provider: Shantel Michel :1965 A ge:58 Y S ex:Male Date:12/26/2023 Address:[address] [place], [place] [id number] Pcp:Ronan Leyva M.D. Subjective: * Chief Complaints: * [facility] * Medical History: * Medications: T aking Trelegy Ellipta 100/62.5/25 MCG DPI 1 INHALATION PO QDAY , Notes to Pharmacist: *Please review and pick correct strength-formulation from Medispan options. If intended option is not shown, discontinue and re-order from Quick Search*, Taking Montelukast Sodium 10 MG Tablet 1 tab(s) orally once a day , Taking Lisinopril 5 MG Tablet 1 tab(s) orally once a day , Taking Albuterol Sulfate HFA 108 (90 Base) MCG/ACT Aerosol Solution 2 puff(s) inhaled every 6 hours , Taking Jardiance 25 MG Tablet 1 tab(s) orally once a day (in the morning) , Taking Atorvastatin Calcium 20 MG Tablet 1 tab(s) orally once a day , Taking TRAZADONE 50MG 1 BY MOUTH AT BEDTIME , Notes to Pharmacist: *Please review for potential replacement for e-prescription and drug interaction check*, Taking Gabapentin 800 MG Tablet 1 tab(s) orally 3 times a day , Taking Mounjaro 12.5 MG/0.5 ML SOLUTION DIRECTED SUBCUTANEOUSLY ONCE A WEEK , Notes to Pharmacist: *Please review and pick correct strength-formulation from EachNet options. If intended option is not shown, discontinue and re-order from Quick Search*, Taking Fluticasone Propionate 50 MCG/ACT Suspension 2 spray(s) in each nostril BID , Taking Cetirizine HCl 10 MG Tablet 1 tab(s) orally once a day , Taking Fluticasone Propionate 50 MCG/ACT Suspension 2 spray(s) in each nostril BID , Taking EpiPen 2-Dereje 0.3 MG/0.3ML Solution Auto-injector as directed intramuscularly once , Taking NASAL WASHES N/A 1 QUART OF STERILIZED TAP WATER OR DISTILLED WATER, 1 TSP NACL, 1 PINCH OF BAKING SODA DIRECTED INTRANASALLY NEEDED , Notes to Pharmacist: *Please review for potential replacement for e-prescription and drug interaction check* * Allergies: P enicillin: rash. Objective: * Vitals: Assessment: Plan: * Treatment: * Billing Information: * Visit Code: * Procedure Codes: * Electronic signature of Joe BHAT-Migration on 05/09/2025 at 11:28 AM CDT Sign off status: Pending * Provider: Shantel thayer Migration Date: 0 12/26/2023 Generated for Keny garza/Gena/Isaac on: 1 11:28 AM CDT
--- OUTSIDE RECORDS SUMMARY | 2025-05-09 11:28 | XMS_ITS | Clinical Summary ---
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
--- OUTSIDE RECORDS SUMMARY | 2025-05-09 11:29 | XMS_ITS | Patient Health Record ---
Author Organization [facility] [employer] [place] ([address]) Address [address] [place] [address] Care Team Providers Care Branch Office Administrator Name Role Phone Ronan Leyva M.D. Primary Care Provider Myah Jacob Valdes Unavailable [phone] Misty Ralph Unavailable Unavailable Allergies Allergen (clinical drug ingredient) [...] review and pick correct strength-formulat ion from [employer] options. If intended option is not shown, [...] review and pick correct strength-formulat ion from [employer] options. If intended option is not shown, [...] Status Risk Notes Problem Chronic allergic conjunctivitis (47778494) Other chronic allergic conjunctivitis (H10.45) Active confirmed Problem Allergic rhinitis caused by pollen (disorder) (30893797) Allergic rhinitis due to pollen (J30.1) Active confirmed Problem Allergic rhinitis (89357837) Other allergic rhinitis (J30.89) Active confirmed Problem Chronic rhinitis (42588959) Chronic rhinitis (J31.0) Active confirmed Problem Hypertrophy of nasal turbinates (95730826) Hypertrophy of nasal turbinates (J34.3) Active confirmed Problem Uncomplicated moderate persistent asthma (345472443) Moderate persistent asthma, uncomplicated (J45.40) Active confirmed Problem Allergic rhinitis caused by animal hair and dander (372903153657926) Allergic rhinitis due to animal (cat) (dog) hair and dander (J30.81) Active confirmed Problem Essential hypertension (74043641) Essential (primary) hypertension (I10) Active confirmed Plan Of Treatment Pending Test Test Name Order Date IMMUNOGLOBULIN G 02/10/2023 CBC (INCLUDES DIFF/PLT) 02/10/2023 Insurance Providers Payer Name Payer Address Payer Phone Subscriber Number Group Number Insured Name Patient Relationship to Insured Coverage Start Date Coverage End Date [facility] [address] [address] [place], [place] [phone] [id number] Dania Correa Spouse - patient is the [...]
--- OUTSIDE RECORDS SUMMARY | 2025-05-09 11:29 | XMS_ITS | Clinical Summary ---
Author Organization [facility] [place] [address] Address [address] [place] [address] Care Team Providers Care Supervising Architect Name Role Phone Ronan Leyva MD Primary Care Provider [phone] Allergies Active Allergy Reactions Criticality Noted Date [...] pressure/glucose/cholesterol levels. Information was provided on the [employer] Project in which the patient expressed interest. Follow-up scheduled with Dr. Jacques in March 2025. 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 Gender Identity Not on file Sexual Orientation [...] LIPID PANEL Routine 09/12/2019 12:5 6 PM MEDICAL WRITER Chest pain, unspecified type from Last 3 Months or Most Recently Relevant to Health Maintenance Results * POCT lipid panel (09/12/2019 12:56 PM MEDICAL WRITER) Cholesterol, POC 225 mg/dL HDL, POC 29 mg/dL Triglycerides, POC 420 mg/dL LDL Cholesterol POC 140 mg/dL Chol/HDL Ratio, POC 7.6 Non-HDL Cholesterol, POC 195 mg/dL Cholesterol Total, POC 225 mg/dL Blood specimen (specimen) 09/12/2019 12:56 PM MEDICAL WRITER Yahaira Olvera MD POINT OF CARE TEST O RDERABLES Final Result from Last 3 Months or Most Recently Relevant to Health Maintenance Insurance Care Teams Supervising Architect Relationship Specialty Start Date End Date Ronan Leyva MD [address] [place] [address] [address] [place], [place] [phone] PCP - General Family Medicine 06/25/23
--- NOTE | 2025-05-09 13:37 | WPDPFTINT ---
PFT Procedure Performed PFT Procedure Performed Spirometry with Pre/Post Bronchodilator Plethysmography (Lung Vol) Diffusing Cap (DLCO) Flow Vol Loop PFT Interpretation This is a pulmonary function test with pre and post-bronchodilator spirometry, plethysmography and diffusing capacity. The test was performed and results interpreted in accordance with the 2019 and 2005 ATS/ERS Task Force guidelines respectively using the Global Lung Function Initiative-2012 reference equations. Patient demonstrated good effort and cooperation. Reproducibility criteria were met. The quality of the pre bronchodilator spirometry maneuver was Grade A and post bronchodilator spirometry maneuver was Grade A. Findings: Spirometry: The contour the inspiratory and expiratory flow tracing are normal. The pre bronchodilator FVC is 4.11 L, 87% predicted. The pre bronchodilator FEV1 is 2.72 L, 75% predicted. The pre bronchodilator FEV1: FVC ratio is 66%. The post bronchodilator FVC is 4.19 L, representing a 2% increase. The post bronchodilator FEV1 is 2.85 L, representing a 5% increase. The post bronchodilator FEV1: FVC ratio 68%. Plethysmography: The total lung capacity 6.04 L, 84% predicted. The functional residual capacity is 4.20 L, 112% predicted. The residual volume is 1.93 L, 83% predicted. Diffusing capacity: The diffusing capacity unadjusted for hemoglobin and carboxyhemoglobin is 27.1, 95% predicted. The diffusing capacity adjusted for alveolar volume is 5.40, 130% predicted. In comparison to previous pulmonary function testing on 05/10/2021, the post bronchodilator FVC is unchanged from 3.85 L to 4.19 L. The post bronchodilator FEV1 is unchanged from 2.53 L to 2.85 L. The total lung capacity is unchanged from 5.75 L to 6.04 L. The functional residual capacity is increased from 3.24 L to 4.20 L. The residual volume is unchanged from 1.71 L to 1.93 L. The diffusing capacity unadjusted for hemoglobin and carboxyhemoglobin is unchanged from 27.3 to 27.1. The diffusing capacity adjusted for alveolar volume is unchanged from 5.51 to 5.40. Impression: The spirometry is normal without evidence of an obstructive abnormality. There is no significant improvement after inhaling a single dose of albuterol. The lung volumes are normal. The diffusing capacity is normal. In comparison to previous pulmonary function testing on 05/10/2021, there has been a greater than anticipated time dependent increase in the functional residual capacity with no significant change in the FVC, FEV1, total lung capacity, residual volume or diffusing capacity. Clinical correlation is recommended.
== END 2025-05-09 10:05 | disposition home or self-care (01) ==
LOC: ANHPFT 10:07
PROVIDERS: PCP Family Medicine; Visit Provider Internal Medicine Critical Care Medicine
DX: J45.40 Moderate persistent asthma, uncomplicated (principal)
CPT/HCPCS: 94060; 94726; 94729